=== PATIENT | female | born 1970 | race Caucasian/White ===

== ENCOUNTER 2016-06-05 08:08 | Day surgery (SDC) | payer BC ==
[2016-06-05 08:42] VITALS: RESP 20; TEMP 97.6
[2016-06-05 08:45] LABS: Mean Platelet Volume 7.6
[2016-06-05 08:55] LABS: INR 1.1 (<1.1); Prothrombin Time 10.8 sec (9.0-12.0)
[2016-06-05 09:34] VITALS: PULSE 68
[2016-06-05 09:54] VITALS: BP 100/58
--- NOTE | 2016-06-05 09:58 | XR ---
EXAMINATION TYPE: XR chest 1V DATE OF EXAM: 06/05/2016 9:52 AM COMPARISON: Chest x-ray March 08, 2016. CT cap April 18, 2016. HISTORY: Pleural effusion status post left-sided thoracentesis. TECHNIQUE: Single frontal view of the chest is obtained. FINDINGS: There is persistent small to moderate size left pleural effusion improved after left-sided thoracentesis. There is associated left basilar atelectasis and/or infiltrate. No sizable pneumothor ax is seen. There is stable right internal jugular Mediport catheter. Right lung is clear. The cardiac silhouett e size is within normal limits. Slight underlying scoliotic curvature to spine is redemonstrated. Doyle rgical clips overlie the right breast. IMPRESSION: No evidence of sizable pneumothorax after left-sided thoracentesis. Interval improvement in pleural effusion noted.
--- NOTE | 2016-06-05 13:22 | US ---
EXAMINATION TYPE: US thoracentesis DATE OF EXAM: 06/05/2016 10:48 AM COMPARISON: NONE HISTORY: Pleural effusion. FINDINGS: Maximal barrier technique was utilized. The skin overlying a suitable pocket of fluid was localized and the overlying skin prepped and draped. Lidocaine was used for local anesthesia. Ultras ound was used with sterile technique. A 5 Yoruba catheter over guide needle was advanced into the pl eural fluid collection using ultrasound guidance and catheter advanced and needle removed. Approxima tely 0.5 liter(s) of sanguinous fluid was removed. Catheter was withdrawn and hemostasis achieved. There is no immediate complication. The patient discharged in stable condition without complication. IMPRESSION: STATUS POST ULTRASOUND GUIDED THORACENTESIS, POST PROCEDURE CHEST X-RAY PENDING. THIS [place] OCEDURE WAS PERFORMED BY THE UNDERSIGNED.
== END 2016-06-05 10:10 | disposition home or self-care (01) ==
LOC: RADPROMAIN 08:08
PROVIDERS: ATTEND Internal Medicine Hematology & Oncology
DX: J90 Pleural effusion, not elsewhere classified (principal)
CPT/HCPCS: 32555; 36415; 71010; 85049; 85610

== ENCOUNTER 2016-07-21 12:48 | Day surgery (SDC) | payer BC ==
[2016-07-21 13:05] VITALS: RESP 18; TEMP 97.8
[2016-07-21 13:30] LABS: Mean Platelet Volume 7.2
[2016-07-21 13:36] LABS: INR 1.1 (<1.1); Prothrombin Time 10.9 sec (9.0-12.0)
--- NOTE | 2016-07-21 14:49 | US ---
EXAMINATION TYPE: US thoracentesis DATE OF EXAM: 07/21/2016 2:42 PM COMPARISON: NONE HISTORY: Pleural effusion. FINDINGS: Maximal barrier technique was utilized. The skin overlying a suitable pocket of fluid was localized and the overlying skin prepped and draped. Lidocaine was used for local anesthesia. Ultras ound was used with sterile technique. A 5 Bengali catheter over guide needle was advanced into the pl eural fluid collection using ultrasound guidance and a catheter advanced, needle removed. Approximat greg 0.35 liter(s) of serous fluid was removed. Catheter was withdrawn and hemostasis achieved. Ther e is no immediate complication. The patient discharged in stable condition without complication. IMPRESSION: STATUS POST ULTRASOUND GUIDED THORACENTESIS, POST PROCEDURE CHEST X-RAY PENDING. THIS [place] OCEDURE WAS PERFORMED BY THE UNDERSIGNED.
--- NOTE | 2016-07-21 14:51 | XR ---
EXAMINATION TYPE: XR chest 1V portable DATE OF EXAM: 07/21/2016 2:45 PM COMPARISON: Prior chest x-ray 05 June 2016 HISTORY: Pleural effusion TECHNIQUE: Single frontal view of the chest is obtained. FINDINGS: Basilar density on the left persists. No evident pneumothorax. There is a spinal curvature . Surgical clips present in the right axilla and right upper quadrant. Right-sided central venous cat heter, Port-A-Cath present, tip over the superior vena cava. IMPRESSION: No evident complication status post thoracentesis.
[2016-07-21 15:15] VITALS: BP 117/72; PULSE 87
== END 2016-07-21 15:10 | disposition home or self-care (01) ==
LOC: RADPROMAIN 12:48
PROVIDERS: ATTEND Internal Medicine Hematology & Oncology
DX: J90 Pleural effusion, not elsewhere classified (principal)
CPT/HCPCS: 32555; 71010; 85049; 85610

== ENCOUNTER → 2016-09-29 | Outpatient (CLI) | payer BC ==
--- NOTE | 2016-09-29 11:49 | XR ---
EXAMINATION TYPE: XR chest 2V DATE OF EXAM: 09/29/2016 11:22 AM HISTORY: J90 pleural effusion. REFERENCE: Previous study dated 07/21/2016. FINDINGS: There is a MediPort in place on the right, unchanged from previous. There is a worsening left effusion and associated atelectatic change. The right lung is clear. Heart size is obscured. IMPRESSION: ENLARGING LEFT-SIDED PLEURAL EFFUSION.
== END ==
LOC: RADXRMAIN 11:08
PROVIDERS: ATTEND Surgery
DX: J90 Pleural effusion, not elsewhere classified (principal)
CPT/HCPCS: 71020

== ENCOUNTER 2016-10-04 08:30 | Day surgery (SDC) | payer BC ==
[2016-10-04 09:03] VITALS: TEMP 97.7
[2016-10-04 09:11] LABS: Mean Platelet Volume 7.2
[2016-10-04 09:15] LABS: INR 1.1 (<1.1); Prothrombin Time 10.6 sec (9.0-12.0)
--- NOTE | 2016-10-04 10:52 | XR ---
EXAMINATION TYPE: XR chest 1V DATE OF EXAM: 10/04/2016 10:47 AM COMPARISON: Prior chest x-ray 29 Sep 2016 HISTORY: Status post left thoracentesis TECHNIQUE: Single frontal view of the chest is obtained. FINDINGS: Some improvement in aeration. No evident pneumothorax. No other significant interval sánchez e. IMPRESSION: No evident complication status post thoracentesis.
[2016-10-04 11:11] VITALS: BP 106/63; PULSE 77; RESP 14
--- NOTE | 2016-10-04 14:19 | US ---
EXAMINATION TYPE: US thoracentesis DATE OF EXAM: 10/04/2016 10:39 AM COMPARISON: NONE HISTORY: Pleural effusion. FINDINGS: Maximal barrier technique was utilized. The skin overlying a suitable pocket of fluid was localized and the overlying skin prepped and draped. Lidocaine was used for local anesthesia. Ultras ound was used with sterile technique. A 5 Icelandic catheter over guide needle was advanced into the pl eural fluid collection using ultrasound guidance and catheter advanced, needle removed. Approximatel y 0.58 liter(s) of dark sanguinous fluid was removed. Catheter was withdrawn and hemostasis achieved . There is no immediate complication. The patient discharged in stable condition without complicati on. IMPRESSION: STATUS POST ULTRASOUND GUIDED THORACENTESIS, POST PROCEDURE CHEST X-RAY PENDING. THIS [place] OCEDURE WAS PERFORMED BY THE UNDERSIGNED.
== END 2016-10-04 11:35 | disposition home or self-care (01) ==
LOC: RADPROMAIN 08:30
PROVIDERS: ATTEND Internal Medicine Hematology & Oncology
DX: J90 Pleural effusion, not elsewhere classified (principal); C78.02 Secondary malignant neoplasm of left lung
CPT/HCPCS: 32555; 71010; 85049; 85610; 88108; 88305; 88341; 88342

== ENCOUNTER → 2017-01-23 | Outpatient (CLI) | payer BC ==
--- NOTE | 2017-01-23 09:18 | CT ---
EXAMINATION TYPE: CT ChestAbdPelvis w con DATE OF EXAM: 01/23/2017 COMPARISON: 04/18/2016 HISTORY: Breast Cancer, Ovarian Cancer CT DLP: 540.40 mGycm. Automated Exposure Control for Dose Reduction was Utilized. CONTRAST: CT scan of the thorax, abdomen and pelvis is performed with IV Contrast, patient injected with 100 ml mL of Omnipaque 300. FINDINGS: LUNGS: No focal consolidation, pleural effusion or pneumothorax. Stable 3 mm subpleural pulmonary nodule in the superior segment of the right lower lobe posteriorly a s seen on series 4 image 26. Within the right upper lobe on image 28 there is a stable 6 mm pulmonary nodule which is subsequently. Retrospectively there is a stable subpleural pulmonary nodule measurin g 4 mm on image 32. Stability of the pleural based pulmonary nodules along the right lower lobe on im ages 46 and 47 are also redemonstrated. Stable 3 to 4 mm pulmonary nodules in the left upper lobe are present on image 25. Lingular pulmonary nodule was not present on the prior exam due to surrounding atelectasis measuring 3.6 mm on image 37. There is a small hydropneumothorax, iatrogenic secondary to a pleural catheter inserted within a smal l to moderate left pleural effusion terminating near the anterior left cardiophrenic angle. Associate d subsegmental compressive atelectasis is noted. This enhances greater than the paraspinal musculatur e compatible with atelectasis. Split pleura sign is noted within the left effusion although fluid hillary ears low-density. Degree of fluid has decreased from the prior exam. MEDIASTINUM: There are no greater than 1 cm hilar or mediastinal lymph nodes. No pericardial effusi on is seen. OTHER: Bilateral breast implants are seen as well as right-sided Mediport and surgical clips. No susp icious osseous lesions are seen. LIVER/GB: No significant abnormality is appreciated. Cholecystectomy is noted. Scant amount of perihe patic fluid is seen. PANCREAS: No significant abnormality is seen. No ductal dilatation. SPLEEN: No significant abnormality is seen. Nonenlarged. ADRENALS: No significant abnormality is seen. Maintain adreniform morphology. KIDNEYS: Enhance symmetrically without discrete lesion BOWEL: Focal bowel wall thickening within the hepatic flexure and transverse colon may be reactive re lated to the adjacent minimal ascites. Bowel wall thickening measures up to 8 mm. No bowel dilation. GENITAL ORGANS: Uterus is surgically absent. Ovaries are not identified. LYMPH NODES: No greater than 1cm abdominal or pelvic lymph nodes are appreciated. OSSEOUS STRUCTURES: No significant abnormality is seen. Slight S-shaped curvature of the thoracolumba r spine and mild degenerative changes. No suspicious osseous lesion. OTHER: Trace amount of fluid is seen within the pelvis, low density. IMPRESSION: 1. No evidence of visceral or osseous metastasis within the abdomen or pelvis. 2. No adenopathy within the chest, abdomen, or pelvis. 3. Multiple stable subcentimeter pulmonary nodules. 4. Focal bowel wall thickening of the hepatic flexure that may be reactive, related to trace adjacent ascites. Minimal amount of cul-de-sac free fluid, simple in nature. 5. Decrease in degree of left pleural effusion with thoracostomy tube present. Associated subsegmenta l left basilar atelectasis is again seen.
== END | disposition home or self-care (01) ==
LOC: RADCTMAIN 07:44
PROVIDERS: ATTEND Internal Medicine Hematology & Oncology
DX: C50.411 Malignant neoplasm of upper-outer quadrant of right female breast (principal); C56.9 Malignant neoplasm of unspecified ovary; R91.8 Other nonspecific abnormal finding of lung field; J90 Pleural effusion, not elsewhere classified; J98.11 Atelectasis; K76.89 Other specified diseases of liver
CPT/HCPCS: 71260; 74177; Q9967; J1642

== ENCOUNTER 2017-03-15 04:20 | Inpatient (IN) | payer BC ==
[2017-03-15] MEDS ORDERED: ONDANSETRON 4 MG/2 ML VIAL IVP STA ×2 (04:46→06:49)
[2017-03-15] MEDS ORDERED: SODIUM CHLORIDE 0.9% 500 ML IV STA (04:46)
[2017-03-15 05:34] LABS: Anisocytosis Slight; Basophils % (A) 0 %; CH 36.5; CHCM 34.6; Eosinophils % (A) 1 %; HCT 33.6 % (34.0-46.0); HDW 3.14; HGB 11.3 gm/dL (11.4-16.0); Luc # (Auto) 0.08; Luc % (Auto) 2; Lymphocytes # (A) 0.5 k/uL (1.0-4.8); Lymphocytes % (A) 13 %; MCH 35.7 pg (25.0-35.0); MCHC 33.6 g/dL (31.0-37.0); MCV 106.2 fL (80.0-100.0); Macrocytosis Moderate; Mean Platelet Volume 8.2; Monocytes # (A) 0.3 k/uL (0-1.0); Monocytes % (A) 9 %; Neutrophils # (A) 2.8 k/uL (1.3-7.7); Neutrophils % (A) 75 %; RBC 3.17 m/uL (3.80-5.40); RDW 17.1 % (11.5-15.5); WBC 3.8 k/uL (3.8-10.6); WBC (Perox) 4.09
[2017-03-15 05:47] LABS: ALT 35 U/L (9-52); AST 20 U/L (14-36); Alkaline Phosphatase 98 U/L (38-126); Amylase <30 U/L (30-110); Anion Gap 10 mmol/L; Blood Urea Nitrogen 24 mg/dL (7-17); Calcium 9.2 mg/dL (8.4-10.2); Carbon Dioxide 28 mmol/L (22-30); Chloride 96 mmol/L (98-107); Glucose 116 mg/dL (74-99); Non-African American GFR(MDRD) >60 (>60 ml/min/1.73 sqM); Sodium 134 mmol/L (137-145); Total Protein 6.5 g/dL (6.3-8.2)
--- NOTE | 2017-03-15 06:03 | XR ---
EXAM: XR Abdomen Complete With XR Chest CLINICAL HISTORY: Left-sided abdominal pain with vomiting. TECHNIQUE: Frontal view of the chest, frontal view of the abdomen/pelvis and upright view of the abdomen. COMPARISON: 10/04/2016. FINDINGS: Lungs: Moderate left pleural effusion resulting in compressive atelectasis of the left lung base, slight interval improvement since prior study. Pleural space: See above. Heart: Unremarkable. No cardiomegaly. Mediastinum: Unremarkable. Intraperitoneal space: No free air. Gastrointestinal tract: Distended air-fluid filled small bowel loops are noted, measuring up to 4.3 cm in diameter, consistent with small bowel obstruction. Organs: Status post cholecystectomy. Bones/joints: Unremarkable. Vasculature: Right-sided chemotherapy port with tip overlying the SVC. Tubes, lines and devices: Left-sided chest tube is seen. IMPRESSION: Distended air-fluid filled small bowel loops are noted, measuring up to 4.3 cm in diameter, consistent with small bowel obstruction. CT of the abdomen/pelvis with oral and IV contrast recommended for further evaluation.
[2017-03-15 06:16] LABS: Appearance,Urine Clear (Clear); Bilirubin,Urine 1+ (Negative); Glucose,Urine (UA) Negative (Negative); Ketones,Urine 2+ (Negative); Leukocyte Esterase,Urine Negative (Negative); Mucus,Urine Moderate /hpf; Nitrite,Urine Negative (Negative); Particle Count 13079; Protein,Urine 1+ (Negative); RBC,Urine 2 /hpf (0-5); Specific Gravity,Urine 1.029 (1.001-1.035); Squamous Epithelial Cell,Urine <1 /hpf (0-4); UA Billing (MACRO vs. MICRO) MICRO; WBC,Urine 3 /hpf (0-5)
[2017-03-15] MEDS ORDERED: MORPHINE SULFATE 10 MG/ML SYRINGE IV PRN (06:49)
[2017-03-15] MEDS ORDERED: NALOXONE 0.4 MG/ML 1 ML VIAL IV PRN (06:49)
[2017-03-15] MEDS ORDERED: SUMAtriptan SUCCINATE 50 MG TAB PO PRN (06:53)
[2017-03-15] MEDS ORDERED: SODIUM CHLORIDE 0.9% 1,000 ML IV SCH (07:00)
--- NOTE | 2017-03-15 07:15 | ED ---
Abdominal Pain HPI - General Chief Complaint: Abdominal Pain Stated Complaint: vomiting,abd pain,cancer pt Time Seen by Provider: 03/15/17 04:28 Source: patient Mode of arrival: ambulatory Limitations: no limitations - History of Present Illness Initial Comments: This patient is a 46-year-old woman with history of ovarian cancer and multiple previous abdominal surgeries, who presents with abdominal pain, nausea and vomiting. The patient states that 2-3 days ago she started having some mild upper abdominal pain and she was nauseated. The patient states that at the start of felt like she had a "knot in her stomach"and she indicated the epigastric area. She states that over the past 2 days she has had "countless," episodes of vomiting. She states that basically anytime she tries to take anything to drink, that shortly after she will have vomiting. The patient also notes that she has not had a bowel movement for the past couple of days and over the past day does not remember passing much in way of gas. She states that she is concerned about possibility of being obstructed. MD Complaint: abdominal pain -: days(s) Location: diffuse Radiation: none Severity: moderate Quality: cramping, fullness Consistency: intermittent Improves With: vomiting Worsens With: eating Associated Symptoms: nausea, vomiting - Related Data Home Medications Medication Instructions Recorded Confirmed LORazepam [Ativan] 2 mg PO HS 09/08/15 03/15/17 SUMAtriptan SUCCINATE [Imitrex] 100 mg PO DAILY PRN 09/08/15 03/15/17 Prochlorperazine [Compazine] 10 mg PO Q6H PRN 01/26/16 03/15/17 ALPRAZolam [Xanax] 0.5 mg PO Q6H PRN 10/04/16 03/15/17 Rucaparib Camsylate [Rubraca] 300 mg PO QAM 10/04/16 03/15/17 Rucaparib Camsylate [Rubraca] 600 mg PO HS 03/15/17 03/15/17 Previous Rx's Medication Instructions Recorded Benzocaine Elkins [Hurricaine Elkins] 1 spray MUCOUS MEM QID PRN can 03/21/17 Enoxaparin [Lovenox] 40 mg SQ DAILY syringe 03/21/17 Ondansetron [Zofran] 4 mg IVP Q6HR PRN vial 03/21/17 Allergies Allergy/AdvReac Type Severity Reaction Status Date / Time No Known Allergies Allergy Verified 03/15/17 07:00 Review of Systems ROS Statement: Those systems with pertinent positive or pertinent negative responses have been documented in the HPI. ROS Other: All systems not noted in ROS Statement are negative. Constitutional: Reports: weakness. Denies: fever, chills Respiratory: Denies: cough, dyspnea Cardiovascular: Denies: chest pain, palpitations, edema Gastrointestinal: Reports: abdominal pain, nausea, vomiting, constipation. Denies: diarrhea, melena, hematochezia Genitourinary: Denies: dysuria, hematuria Musculoskeletal: Denies: back pain Skin: Denies: rash Neurological: Denies: headache, weakness, numbness Past Medical History Past Medical History: Cancer Additional Past Medical History / Comment(s): Breast, Ovarian dx , MIGRAINE HEADACHE, pleural effusions, CA125 markers holding steady. History of Any Multi-Drug Resistant Organisms: None Reported Past Surgical History: Breast Surgery, Cholecystectomy, Hysterectomy Additional Past Surgical History / Comment(s): Total Hyst with debulking . PORT AND PORT REMOVAL , RIGHT PARTIAL MASTECTOMY WITH BILATERAL RECONSTRUCTION WITH IMPLANTS, THORACENTESIS, Past Anesthesia/Blood Transfusion Reactions: No Reported Reaction Past Psychological History: Anxiety Smoking Status: Former smoker Past Alcohol Use History: Occasional Past Drug Use History: Marijuana - Past Family History Mother Family Medical History: Cancer Additional Family Medical History / Comment(s): lung ca Father Family Medical History: Diabetes Mellitus General Exam Limitations: no limitations General appearance: alert, in no apparent distress Head exam: Present: atraumatic, normocephalic Eye exam: Present: normal appearance. Absent: scleral icterus, conjunctival injection ENT exam: Present: mucous membranes dry Respiratory exam: Present: normal lung sounds bilaterally, other (Patient has left-sided thoracostomy tube which has a normal appearance.). Absent: respiratory distress, wheezes, rales, rhonchi, stridor Cardiovascular Exam: Present: regular rate, normal rhythm, normal heart sounds. Absent: systolic murmur, diastolic murmur, rubs, gallop GI/Abdominal exam: Present: soft, tenderness (There is mild generalized tenderness without rebound or guarding), diminished bowel sounds. Absent: distended, guarding, rebound, rigid, mass, pulsatile mass, hernia Extremities exam: Present: normal inspection, normal capillary refill. Absent: pedal edema, calf tenderness Back exam: Present: normal inspection. Absent: CVA tenderness (R), CVA tenderness (L) Skin exam: Present: warm, dry, intact, normal color. Absent: rash Course Vital Signs 03/15/17 03/15/17 03/15/17 04:28 05:20 06:23 Temperature 97.8 F Pulse Rate 113 H 97 89 Respiratory 18 18 18 Rate Blood Pressure 131/77 118/67 120/76 O2 Sat by Pulse 96 97 96 Oximetry 03/15/17 03/15/17 07:02 07:06 Temperature 98.7 F Pulse Rate 89 Respiratory 18 Rate Blood Pressure 92/54 O2 Sat by Pulse 97 Oximetry Medical Decision Making - Lab Data Result diagrams: 03/17/17 07:20 03/21/17 05:20 Lab Results 03/15/17 03/15/17 03/15/17 Range/Units 05:18 05:18 05:18 WBC 3.8 (3.8-10.6) k/uL RBC 3.17 L (3.80-5.40) m/uL Hgb 11.3 L (11.4-16.0) gm/dL Hct 33.6 L (34.0-46.0) % MCV 106.2 H (80.0-100.0) fL MCH 35.7 H (25.0-35.0) pg MCHC 33.6 (31.0-37.0) g/dL RDW 17.1 H (11.5-15.5) % Plt Count 270 (150-450) k/uL Neutrophils % 75 % Lymphocytes % 13 % Monocytes % 9 % Eosinophils % 1 % Basophils % 0 % Neutrophils # 2.8 (1.3-7.7) k/uL Lymphocytes # 0.5 L (1.0-4.8) k/uL Monocytes # 0.3 (0-1.0) k/uL Eosinophils # 0.0 (0-0.7) k/uL Basophils # 0.0 (0-0.2) k/uL Anisocytosis Slight Macrocytosis Moderate Sodium 134 L (137-145) mmol/L Potassium 4.0 (3.5-5.1) mmol/L Chloride 96 L (98-107) mmol/L Carbon Dioxide 28 (22-30) mmol/L Anion Gap 10 mmol/L BUN 24 H (7-17) mg/dL Creatinine 0.80 (0.52-1.04) mg/dL Est GFR (MDRD) Af Amer >60 (>60 ml/min/1.73 sqM) Est GFR (MDRD) Non-Af >60 (>60 ml/min/1.73 sqM) Glucose 116 H (74-99) mg/dL Calcium 9.2 (8.4-10.2) mg/dL Total Bilirubin 1.0 (0.2-1.3) mg/dL AST 20 (14-36) U/L ALT 35 (9-52) U/L Alkaline Phosphatase 98 (38-126) U/L Total Protein 6.5 (6.3-8.2) g/dL Albumin 3.7 (3.5-5.0) g/dL Prealbumin 14.0 L (18.0-42.0) mg/dL Amylase <30 L (30-110) U/L Lipase 61 (23-300) U/L Urine Color Urine Appearance (Clear) Urine pH (5.0-8.0) Ur Specific [place] (1.001-1.035) Urine Protein (Negative) Urine Glucose (UA) (Negative) Urine Ketones (Negative) Urine Blood (Negative) Urine Nitrite (Negative) Urine Bilirubin (Negative) Urine Urobilinogen (<2.0) mg/dL Ur Leukocyte Esterase (Negative) Urine RBC (0-5) /hpf Urine WBC (0-5) /hpf Ur Squamous Epith Cells (0-4) /hpf Hyaline Casts (0-2) /lpf Urine Mucus (None) /hpf 03/15/17 Range/Units 05:55 WBC (3.8-10.6) k/uL RBC (3.80-5.40) m/uL Hgb (11.4-16.0) gm/dL Hct (34.0-46.0) % MCV (80.0-100.0) fL MCH (25.0-35.0) pg MCHC (31.0-37.0) g/dL RDW (11.5-15.5) % Plt Count (150-450) k/uL Neutrophils % % Lymphocytes % % Monocytes % % Eosinophils % % Basophils % % Neutrophils # (1.3-7.7) k/uL Lymphocytes # (1.0-4.8) k/uL Monocytes # (0-1.0) k/uL Eosinophils # (0-0.7) k/uL Basophils # (0-0.2) k/uL Anisocytosis Macrocytosis Sodium (137-145) mmol/L Potassium (3.5-5.1) mmol/L Chloride (98-107) mmol/L Carbon Dioxide (22-30) mmol/L Anion Gap mmol/L BUN (7-17) mg/dL Creatinine (0.52-1.04) mg/dL Est GFR (MDRD) Af Amer (>60 ml/min/1.73 sqM) Est GFR (MDRD) Non-Af (>60 ml/min/1.73 sqM) Glucose (74-99) mg/dL Calcium (8.4-10.2) mg/dL Total Bilirubin (0.2-1.3) mg/dL AST (14-36) U/L ALT (9-52) U/L Alkaline Phosphatase (38-126) U/L Total Protein (6.3-8.2) g/dL Albumin (3.5-5.0) g/dL Prealbumin (18.0-42.0) mg/dL Amylase (30-110) U/L Lipase (23-300) U/L Urine Color Yellow Urine Appearance Clear (Clear) Urine pH 6.0 (5.0-8.0) Ur Specific [place]wood 1.029 (1.001-1.035) Urine Protein 1+ H (Negative) Urine Glucose (UA) Negative (Negative) Urine Ketones 2+ H (Negative) Urine Blood Negative (Negative) Urine Nitrite Negative (Negative) Urine Bilirubin 1+ H (Negative) Urine Urobilinogen 4.0 (<2.0) mg/dL Ur Leukocyte Esterase Negative (Negative) Urine RBC 2 (0-5) /hpf Urine WBC 3 (0-5) /hpf Ur Squamous Epith Cells <1 (0-4) /hpf Hyaline Casts 1 (0-2) /lpf Urine Mucus Moderate H (None) /hpf Disposition Clinical Impression: Bowel obstruction, Ovarian cancer Disposition: ADMITTED IP TO THIS [facility] Condition: Poor
[2017-03-15] MEDS: FAMOTIDINE 20 MG/2 ML VIAL IV SCH ×2 (10:15→20:26)
[2017-03-15] MEDS: ONDANSETRON 4 MG/2 ML VIAL IVP PRN ×2 (12:38→19:39)
[2017-03-15] MEDS: PROCHLORPERAZINE 10 MG TAB PO SCH ×2 (13:20→20:18)
[2017-03-15] MEDS: RUCAPARIB CAMSYLATE 300 MG PO SCH ×3 (13:20→22:23)
--- NOTE | 2017-03-15 15:04 | HP ---
HISTORY AND PHYSICAL DATE OF ADMISSION: 03/15/2017 PRESENTING COMPLAINT: Abdominal pain. HISTORY OF PRESENTING COMPLAINT: A very pleasant, 46-year-old patient of Dr. Hunt. Patient back in 2004 had right breast cancer treated with chemotherapy, radiation, mastectomy. Patient then diagnosed with ovarian cancer in 2014 with what appears to be have intraabdominal metastasis including left pleural effusion. For which patient has got a drain for which she goes to [facility], Dr. Russell to get it intermittently drained. Patient appetite has gone down and losing weight. Patient alternates between diarrhea and constipation. Two days having increasing abdominal pain and started having nausea, vomiting,. not able to keep anything down. Patient had a small bowel movement today. Patient's and in-laws are in the room. REVIEW OF SYSTEMS: CONSTITUTIONAL: Weight loss, loss of appetite, weak, tired. HEENT: None. RESPIRATORY: Very slight shortness of breath. CARDIOVASCULAR: None. GASTROINTESTINAL: As above. GENITOURINARY: None. MUSCULOSKELETAL: None. DERMATOLOGIC: None. HEMATOLOGIC: None. LYMPHATIC: None. PSYCHIATRY: slightly anxious. NEUROLOGICAL: None. PAST MEDICAL HISTORY: Right breast cancer treated with mastectomy, chemoradiation back in 2004, now ovarian cancer spread intra-abdominally including the liver, treated with surgery and chemo, currently on oral chemotherapy, also with pleural effusion and patient is hypothyroid. PAST SURGICAL HISTORY: Breast right mastectomy, cholecystectomy, hysterectomy, port on the right chest wall, right partial mastectomy with bilateral reconstruction with implants. SOCIAL HISTORY: Patient lives with her . Some anxiety, depression. Sometimes uses a walker when she goes outside. The patient smoked for 18 years. Stopped in 2004. Alcohol occasionally. Has done medical marijuana in the past. FAMILY HISTORY: Mother had lung cancer, was a smoker. HOME MEDICATIONS: 1. Imitrex 100 mg daily p.r.n. 2. Rubraca 600 mg p.o. q.h.s., 300 mg in the morning. 3. Compazine 10 mg q.6 p.r.n. 4. Zofran 4 mg q.4 p.r.n. 5. Ativan 2 mg p.o. q.h.s. 6. Xanax 0.5 p.o. q.6 p.r.n. ALLERGIES: None. PHYSICAL EXAMINATION: Temperature 97.8, pulse: 113, respiration 18, blood pressure 131/77, pulse ox 96% on room air. GENERAL APPEARANCE: Thin build. Sitting up. Tired-appearing. EYES: Pupils equal, conjunctivae are pale. HEENT: Oral cavity dry mucous membrane. NECK: JVD not raised. Mass not palpable. RESPIRATORY: Effort normal. LUNGS: Slightly decreased breath sounds. CARDIOVASCULAR: First and second sounds normal, no edema. ABDOMEN: Diffuse tenderness, more so centrally but no guarding or rigidity. Soft, liver and spleen not palpable. LYMPHATIC: No lymph node palpable in neck or axillae. PSYCHIATRY: Alert and oriented x3. Mood and affect slightly anxious-appearing. NEUROLOGICAL: Pupils are grossly intact. Power and sensation grossly intact. Very slight edema is present. INVESTIGATIONS: White count 3.8, hemoglobin 11.3, platelets 270, potassium 4, BUN 24, creatinine 0.80. Acute abdominal series, distended air-filled small bowel loops are noted measuring up to 4.3 cm. ASSESSMENT: 1. Acute small-bowel obstruction in a patient who has got intraabdominal metastatic disease from ovarian cancer and having nausea, vomiting with a small amount of bowel movement today. 2. Metastatic ovarian cancer on chemotherapy. 3. Chronic left pleural effusion from malignancy with a drain in place. 4. Hypothyroidism. 5. Macrocytic anemia likely from underlying malignancy. PLAN: Consultation to Dr. Thao from Oncology; Dr. Hicks from General Surgery is being made. Patient is currently n.p.o. getting IV fluids. Overall prognosis is guarded. Care was discussed with the patient and family at the bedside. MMODL / IJN: [id number] /
[2017-03-15] MEDS ORDERED: RX INFO: IV CONTRAST WAS GIVEN 1 EACH MISC MISCELLANE PRN (16:04)
[2017-03-15] MEDS ORDERED: IOHEXOL 350 MG/ML 25 ML BOTTLE (ORAL USE) PO PRN (16:04)
--- NOTE | 2017-03-15 16:10 | P.GSCN ---
History of Present Illness Consult date: 03/15/17 Reason for Consult: Small bowel obstruction History of present illness: Patient with a history of ovarian cancer that is metastatic. Her most recent CAT scan was performed in late December. Some thickening of the hepatic flexure of the colon was noted at that time. She saw her gynecologic oncologist Dr. Red following that. On his examination there was some soft tissue in the cul -de-sac that he thought likely represented persistent disease. No recent PET scan. She is currently undergoing a oral chemotherapy agents. She has over the last several months had intermittent diarrhea and constipation. Over the last 2-3 days she has had nausea and persistent vomiting. Some upper abdominal spastic pain. Denies rectal bleeding. No fevers. She was feeling quite dehydrated and came to the hospital yesterday for evaluation. Abdominal x-rays suggested a small bowel obstruction. She is afebrile. White blood cell count is normal. No prior bowel obstructions. Review of Systems The patient denies any acute changes in vision or hearing, no dysphagia or odynophagia, no chest pain or shortness of breath, no dysuria or hematuria, no headache, no runny nose, no rectal bleeding or melena Past Medical History Past Medical History: Cancer Additional Past Medical History / Comment(s): R Breast-treated with partial R mastectomy/chemo/radiation, Ovarian cancer which pt states spread thru "my entire belly-including my liver"-tx with surgery and chemo-currently on oral chemo, MIGRAINE HEADACHE, pleural effusions-currently has L lung drainage tube, hypothyroid. History of Any Multi-Drug Resistant Organisms: None Reported Past Surgical History: Breast Surgery, Cholecystectomy, Hysterectomy Additional Past Surgical History / Comment(s): Total Hyst with debulking . PORTS WITH LAST ONE PLACED IN 2014, RIGHT PARTIAL MASTECTOMY WITH BILATERAL RECONSTRUCTION WITH IMPLANTS, THORACENTESIS/DRAIN LEFT IN L LUNG, 2013 COLONOSCOPY Past Anesthesia/Blood Transfusion Reactions: No Reported Reaction Smoking Status: Former smoker - Past Family History Mother Family Medical History: Cancer Additional Family Medical History / Comment(s): Lung ca-mother was a smoker. Father Family Medical History: Diabetes Mellitus Medications and Allergies Home Medications Medication Instructions Recorded Confirmed Type LORazepam [Ativan] 2 mg PO HS 09/08/15 03/15/17 History SUMAtriptan SUCCINATE [Imitrex] 100 mg PO DAILY PRN 09/08/15 03/15/17 History Prochlorperazine [Compazine] 10 mg PO Q6H PRN 01/26/16 03/15/17 History ALPRAZolam [Xanax] 0.5 mg PO Q6H PRN 10/04/16 03/15/17 History Rucaparib Camsylate [Rubraca] 300 mg PO QAM 10/04/16 03/15/17 History Ondansetron [Zofran ODT] 4 mg PO Q4H PRN 03/15/17 03/15/17 History Rucaparib Camsylate [Rubraca] 600 mg PO HS 03/15/17 03/15/17 History Allergies Allergy/AdvReac Type Severity Reaction Status Date / Time No Known Allergies Allergy Verified 03/15/17 07:00 Surgical - Exam Vital Signs Temp Pulse Resp BP Pulse Ox 97.8 F 113 H 18 131/77 96 03/15/17 04:28 03/15/17 04:28 03/15/17 04:28 03/15/17 04:28 03/15/17 04:28 Physical exam: General: Thin somewhat malnourished appearing HEENT: Normocephalic, sclerae nonicteric Abdomen: Mild diffuse tenderness increased in the right midabdomen, nondistended Extremities: No edema Neuro: Alert and oriented Results - Labs 03/15/17 05:18 03/15/17 05:18 Abnormal Lab Results - Last 24 Hours (Table) 03/15/17 03/15/17 03/15/17 Range/Units 05:18 05:18 05:55 RBC 3.17 L (3.80-5.40) m/uL Hgb 11.3 L (11.4-16.0) gm/dL Hct 33.6 L (34.0-46.0) % MCV 106.2 H (80.0-100.0) fL MCH 35.7 H (25.0-35.0) pg RDW 17.1 H (11.5-15.5) % Lymphocytes # 0.5 L (1.0-4.8) k/uL Sodium 134 L (137-145) mmol/L Chloride 96 L (98-107) mmol/L BUN 24 H (7-17) mg/dL Glucose 116 H (74-99) mg/dL Amylase <30 L (30-110) U/L Urine Protein 1+ H (Negative) Urine Ketones 2+ H (Negative) Urine Bilirubin 1+ H (Negative) Urine Mucus Moderate H (None) /hpf Diabetes panel 03/15/17 Range/Units 05:18 Sodium 134 L (137-145) mmol/L Potassium 4.0 (3.5-5.1) mmol/L Chloride 96 L (98-107) mmol/L Carbon Dioxide 28 (22-30) mmol/L BUN 24 H (7-17) mg/dL Creatinine 0.80 (0.52-1.04) mg/dL Glucose 116 H (74-99) mg/dL Calcium 9.2 (8.4-10.2) mg/dL AST 20 (14-36) U/L ALT 35 (9-52) U/L Alkaline Phosphatase 98 (38-126) U/L Total Protein 6.5 (6.3-8.2) g/dL Albumin 3.7 (3.5-5.0) g/dL Calcium panel 03/15/17 Range/Units 05:18 Calcium 9.2 (8.4-10.2) mg/dL Albumin 3.7 (3.5-5.0) g/dL Pituitary panel 03/15/17 Range/Units 05:18 Sodium 134 L (137-145) mmol/L Potassium 4.0 (3.5-5.1) mmol/L Chloride 96 L (98-107) mmol/L Carbon Dioxide 28 (22-30) mmol/L BUN 24 H (7-17) mg/dL Creatinine 0.80 (0.52-1.04) mg/dL Glucose 116 H (74-99) mg/dL Calcium 9.2 (8.4-10.2) mg/dL Adrenal panel 03/15/17 Range/Units 05:18 Sodium 134 L (137-145) mmol/L Potassium 4.0 (3.5-5.1) mmol/L Chloride 96 L (98-107) mmol/L Carbon Dioxide 28 (22-30) mmol/L BUN 24 H (7-17) mg/dL Creatinine 0.80 (0.52-1.04) mg/dL Glucose 116 H (74-99) mg/dL Calcium 9.2 (8.4-10.2) mg/dL Total Bilirubin 1.0 (0.2-1.3) mg/dL AST 20 (14-36) U/L ALT 35 (9-52) U/L Alkaline Phosphatase 98 (38-126) U/L Total Protein 6.5 (6.3-8.2) g/dL Albumin 3.7 (3.5-5.0) g/dL Assessment and Plan (1) Bowel obstruction Narrative/Plan: Clinical scenario discussed with the patient. Small bowel structure likely on the basis of recurrent peritoneal disease. Will check CT abdomen and pelvis at this time. Keep nothing by mouth for now. We'll check prealbumin level. Patient may require parenteral nutrition. Current Visit: Yes Status: Acute Code(s): K56.609 - SNOMED Code(s): 18034792
[2017-03-15] MEDS: LACTATED RINGERS 1,000 ML IV SCH (17:47)
[2017-03-15] MEDS: ENOXAPARIN 40 MG/0.4 ML SYRINGE SQ SCH (17:47)
--- NOTE | 2017-03-15 19:23 | CT ---
EXAMINATION TYPE: CT abdomen pelvis w con DATE OF EXAM: 03/15/2017 HISTORY: Evaluate small bowel obstruction. History of ovarian cancer. Mass felt near rectum on rectal exam. CT DLP: 991.00mGycm Automated Exposure Control for Dose Reduction was Utilized. CONTRAST: CT scan of the abdomen and pelvis is performed with IV Contrast, patient injected with 100 mL of Omni paque 300. COMPARISON: None. FINDINGS: LUNG BASES: There is a left-sided thoracostomy tube within 80 partially visualized small left pleural effusion with associated left basilar subsegmental atelectasis and interfissural fluid. Split pleura sign and likely relates to reactive inflammatory process of the pleural given the chest tube placeme nt rather than empyema. Bilateral breast implants are noted. LIVER/GB: In this patient with a history of ovarian cancer there is no evidence of liver parenchymal invasion or focal hepatic masses. No intrahepatic biliary ductal dilatation. Gallbladder is surgicall y absent. No subserosal implants are identified. PANCREAS: No significant abnormality is seen. No ductal dilatation. SPLEEN: No significant abnormality is seen. No splenomegaly. ADRENALS: Adrenal glands are symmetric and maintained adreniform morphology. KIDNEYS: Enhance symmetrically without hydronephrosis. BOWEL: The majority of the small bowel is dilated containing differential air-fluid levels with the p roximal small bowel dilated up to 3.9 cm. No distinct transition point is identified, however there i s decreased caliber at the distal ileum with fluid seen in the distal ileum and terminal ileum. The c olon is nondilated with pronounced haustral markings and hyperemia, likely reactive as they are seen throughout and there is adjacent small volume low-density ascites. Distal colon is decompressed inclu ding the descending and sigmoid colon. Engorgement of the vasa recta and mesenteric haziness relate t o mesenteric congestion. Progression of contrast within the small bowel is seen to the pelvis likely within the distal jejunum. UTERUS/ADNEXA: Uterus is surgically absent and once again the ovaries are not identified and also may be surgically absent. LYMPH NODES: No greater than 1cm abdominal or pelvic lymph nodes are appreciated. OSSEOUS STRUCTURES: No significant abnormality is seen. Mild S-shaped scoliotic curvature is again se en of the thoracolumbar spine with minimal degenerative changes. IMPRESSION: 1. Diffuse dilation of the small bowel with no focal transition point, however there is decreased nieves iber of the distal ileum and terminal ileum suspicious for incomplete/partial small bowel obstruction . Short-term follow-up abdominal radiograph could be performed to assess for advancement of oral cont rast through the small bowel into the colon to ensure no early complete small bowel obstruction. 2. Interval increase degree of now small to moderate volume low-density ascites and mesenteric conges tion. 3. Diffuse colonic haustral hyperemia and prominence that may relate to inflammatory change from the adjacent ascites. 4. Partially visualized left complex pleural effusion with left basilar airspace disease and left tho racostomy tube in place. A [employer]te message has been communicated to Andrea Hicks MD~[id number] via the [employer] Critical Result system on 03/15/2017 7:21 PM, Message ID [id number].
[2017-03-15] MEDS: LORazepam 1 MG TAB PO SCH (21:54)
[2017-03-15] MEDS: RUCAPARIB CAMSYLATE PO SCH (22:23)
[2017-03-16] MEDS: LACTATED RINGERS 1,000 ML IV SCH ×3 (00:01→14:18)
[2017-03-16] MEDS: PROCHLORPERAZINE 10 MG TAB PO SCH ×4 (01:25→19:50)
[2017-03-16] MEDS ORDERED: ACETAMINOPHEN IV (For NPO) 1,000 MG in EMPTY BAG 1 BAG IVPB ONE (01:47)
[2017-03-16] MEDS: ONDANSETRON 4 MG/2 ML VIAL IVP PRN ×3 (07:31→20:43)
[2017-03-16] MEDS: ENOXAPARIN 40 MG/0.4 ML SYRINGE SQ SCH (07:52)
[2017-03-16] MEDS: ACETAMINOPHEN IV (For NPO) 1,000 MG in EMPTY BAG 1 BAG IVPB PRN ×3 (07:52→20:41)
[2017-03-16] MEDS: FAMOTIDINE 20 MG/2 ML VIAL IV SCH ×2 (07:53→20:43)
[2017-03-16] MEDS: RUCAPARIB CAMSYLATE 300 MG PO SCH ×4 (07:54→21:18)
--- NOTE | 2017-03-16 14:56 | P.PN ---
Progress Note - Text Progress Note Date: 03/16/17 DATE OF SERVICE: 03/16/2017 PRESENTING COMPLAINT: Abdominal pain HISTORY OF PRESENT ILLNESS: 36-year-old female who presented with poor appetite losing weight and increasing abdominal pain with nausea vomiting body will keep anything down. Has small bowel movement on day of admission. Acute abdominal series revealed distended air-filled small bowel loops consistent with a small bowel obstruction. Admitted for the same. INTERVAL HISTORY: 03/16/2017: Sitting up in the bed appears comfortable. States abdominal pain is much better. General surgery believes pain is based on recurrence of peritoneal disease, may at some point need parenteral nutrition. Diet remains nothing by mouth, encourage patient to be up and about. We'll await input additional input from Gen. surgery. REVIEW OF SYSTEMS: Done for constitutional ,cardiovascular, GI, pulmonary with relevant findings as above. CURRENT MEDICATIONS IV Tylenol, Xanax, Lovenox, Pepcid, Ativan, morphine, Zofran, Compazine. PHYSICAL EXAM VITAL SIGNS: Temperature 99.3, heart rate 92, respiratory rate 16, blood pressure 107/68, oxygen saturation 97% on room air. GENERAL APPEARANCE: Lying in bed, not in distress, tired appearing EYES: Pupils equal. Conjunctiva normal. NECK: JVD not raised. Mass not palpable. RESPIRATORY: Respiratory effort normal. Lungs decreased to auscultation. CARDIOVASCULAR: First and second sounds normal. No edema. ABDOMEN: Soft. Liver and spleen not palpable. Diffuse tenderness. No mass palpable. No guarding or rigidity PSYCHIATRY: Alert and oriented x3. Mood and affect normal. INVESTIGATIONS: Hemoglobin 11.3, sodium 134, potassium 4.0, chloride 96, BUN 24, creatinine 0.80 , ASSESSMENT: -Acute small bowel obstruction a patient who has intra-abdominal metastatic disease from ovarian cancer, slow to respond -Metastatic ovarian cancer on chemotherapy. -Chronic left pleural effusion for malignancy with a drain in place. -Hypothyroidism. -Macrocytic anemia likely from underlying malignancy. PLAN: Maintain nothing by mouth status continue IV fluids, await additional input from Gen. surgery. May require parenteral nutrition. Plan of care discussed at the bedside with the patient she is in agreement. We'll follow closely. STEM SETTER statement: Patient was seen and examined by nurse practitioner Anika Santana and all elements of the case discussed with attending Dr. Martínez
--- NOTE | 2017-03-16 16:03 | P.PN ---
Subjective Progress Note Date: 03/16/17 Principal diagnosis: Small bowel obstruction The patient seen and examined at bedside. She states that since her computed tomography scan she has had 1 loose bowel function. She states that she feels more distended and uncomfortable. She states that she spent much of the night and morning dry heaving. She states that the Zofran mildly helps her nausea. She denies any additional bowel function. Objective - Vital Signs Vital signs: Vital Signs Temp 99.3 F 03/16/17 07:00 Pulse 104 H 03/16/17 07:00 Resp 16 03/16/17 11:14 BP 107/68 03/16/17 07:00 Pulse Ox 97 03/16/17 07:00 Intake & Output 03/15/17 03/16/17 03/16/17 18:59 06:59 18:59 Intake Total 1000 Balance 1000 Weight 54.431 kg Intake: Intake, IV Titration 1000 Amount Lactated Ringers 1,000 ml 1000 @ 125 mls/hr IV .Q8H JOHN Rx#:[id number] Other: Voiding Method Toilet # Voids 2 # Bowel Movements 1 - Constitutional General appearance: Present: cooperative, no acute distress - EENT Eyes: Present: EOMI, PERRLA ENT: Present: hearing grossly normal - Neck Neck: Present: normal ROM. Absent: lymphadenopathy, rigidity, stridor - Respiratory Details: No difficulty with respiration - Cardiovascular Rhythm: regular Heart sounds: normal: S1, S2 - Gastrointestinal Gastrointestinal Comment(s): Soft, mildly distended, tenderness to palpation and percussion in her epigastrium, no rebound, no guarding, no palpable masses - Integumentary Integumentary: Present: normal turgor - Musculoskeletal Musculoskeletal: Present: gait normal - Psychiatric Psychiatric: Present: A&O x's 3, appropriate affect, intact judgment & insight - Labs CBC & Chem 7: 03/15/17 05:18 03/15/17 05:18 Labs: Abnormal Lab Results - Last 24 Hours (Table) 03/15/17 Range/Units 05:18 Prealbumin 14.0 L (18.0-42.0) mg/dL Assessment and Plan (1) Bowel obstruction Current Visit: Yes Status: Acute Code(s): K56.609 - SNOMED Code(s): 13350592 Plan: 46-year-old female with known metastatic ovarian cancer with small bowel obstruction - Due to increased distention and dry heaving, we will place NG tube. This was discussed in depth with the patient and the patient's family. - Keep nothing by mouth - Repeat abdominal x-ray on 03/17 - Further recommendations to follow
[2017-03-16] MEDS: ALPRAZolam 0.5 MG TAB PO PRN (16:42)
--- NOTE | 2017-03-16 16:52 | XR ---
EXAMINATION TYPE: XR chest 1V portable DATE OF EXAM: 03/16/2017 COMPARISON: 10/04/2016 INDICATION: Nasogastric tube placement TECHNIQUE: Single frontal view of the chest is obtained. FINDINGS: The heart size is normal. The pulmonary vasculature is normal. Nasogastric tube is been introduced as the tip in the right upper quadrant of the abdomen. Port is pr esent on the right with tip in the distal superior vena cava region. Moderate size left pleural effus ion is stable. A left-sided catheter is present. No pneumothorax is evident. Surgical clips are in th e right. IMPRESSION: 1. Moderate left pleural effusion. 2. Lines and catheters discussed above.
[2017-03-16] MEDS: LORazepam 1 MG TAB PO SCH (19:50)
[2017-03-16] MEDS: RUCAPARIB CAMSYLATE PO SCH (21:18)
[2017-03-16] MEDS: LORazepam 2 MG/ML INJ IV PRN (22:15)
--- NOTE | 2017-03-16 22:41 | PN ---
PROGRESS NOTE DATE OF SERVICE: March 17, 2017. ATTENDING NOTE: Patient was seen and examined by me. I discussed with my nurse practitioner, Ms. Santana. This is a patient with known metastatic intraabdominal cancer on chemotherapy, including small-bowel obstruction. Had CT scan with through, did have a small bowel movement, had cramping abdominal pain. Awaiting input from surgery to decide if an NG tube will be put. We will try clear liquids. Abdomen soft. Tenderness present. Bowel sounds are present. ASSESSMENT: Ovarian cancer of intraabdominal metastatic disease leading to small bowel obstruction. PLAN: Continue current medication and treatment plan. Getting IV fluids. Overall prognosis is guarded. MMODL / IJN: [id number] /
[2017-03-17] MEDS: LACTATED RINGERS 1,000 ML IV SCH ×2 (00:17→06:08)
[2017-03-17] MEDS: PROCHLORPERAZINE 10 MG TAB PO SCH ×4 (00:18→18:20)
[2017-03-17] MEDS: ALPRAZolam 0.5 MG TAB PO PRN (01:02)
--- NOTE | 2017-03-17 01:03 | P.CONS ---
History of Present Illness - Reason for Consult Consult date: 03/16/17 small bowel obstruction. Ovarian cancer - History of Present Illness The patient is a 46-year-old white female well known to service. she was diagnosed with a stage I breast cancer on the right in 2005, hormone receptor negative and HER2 positive, for which she was treated with lumpectomy, followed by chemotherapy and Herceptin as well as radiation. In spring , she was diagnosed with ovarian cancer with peritoneal involvement. She had treatment with 4 cycles of carboplatin and Taxol and underwent debulking surgery in 11/[address] Red. She had additional 2 cycles of Carboplatin and Taxol completing treatment in late 01/09. she progressed in 09/10 with rising CA- 125, as well as left pleural effusion. Thoracentesis was positive for adenocarcinoma consistent with ovarian primary. The patient was started on Doxil, with carboplatin added after about 2-3 months due to aggressive increasing CA-125. She completed chiropractor and Doxil 04/12. By 08/11, she had progressed again with recurrent pleural effusions, requiring periodic thoracentesis. she was started on Rubraca ( she was BRCA1 positive). owever over the last couple months, she has continued to feel somewhat poorly. On evaluation by Dr. Red in 02/11 and there was concern for progression in the adnexal region. CA-125 has continued to show progression over the last2-3 months at least. The patient has had some nausea and vomiting related to her medication. This is improved with cutting the dose down. However over tst 1-2 days she developed progressive abdominal pain and distentio well asprogressive nausea and vomiting. She was unable to keep anything down. She therefore came into the emergency room. She underwent CT scan of the abdomen and pelvis as well as abdominal x-rays which showed evidence of small bowel obstruction. She was therefore admitted for further evaluation. 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) Menstruation: Reports postmenopausal Musculoskeletal: Reports muscle weakness Integumentary: Denies pruritus, Denies rash Neurological: Reports weakness Psychiatric: Reports depression Endocrine: Reports fatigue, Reports weight change Hematologic/Lymphatic: Reports as per HPI Past Medical History Past Medical History: Cancer Additional Past Medical History / Comment(s): R Breast-treated with partial R mastectomy/chemo/radiation, Ovarian cancer which pt states spread thru "my entire belly-including my liver"-tx with surgery and chemo-currently on oral chemo, MIGRAINE HEADACHE, pleural effusions-currently has L lung drainage tube, hypothyroid. History of Any Multi-Drug Resistant Organisms: None Reported Past Surgical History: Breast Surgery, Cholecystectomy, Hysterectomy Additional Past Surgical History / Comment(s): Total Hyst with debulking . PORTS WITH LAST ONE PLACED IN 2014, RIGHT PARTIAL MASTECTOMY WITH BILATERAL RECONSTRUCTION WITH IMPLANTS, THORACENTESIS/DRAIN LEFT IN L LUNG, 2013 COLONOSCOPY Past Anesthesia/Blood Transfusion Reactions: No Reported Reaction Smoking Status: Former smoker - Past Family History Mother Family Medical History: Cancer Additional Family Medical History / Comment(s): Lung ca-mother was a smoker. Father Family Medical History: Diabetes Mellitus Medications and Allergies Home Medications Medication Instructions Recorded Confirmed Type LORazepam [Ativan] 2 mg PO HS 09/08/15 03/15/17 History SUMAtriptan SUCCINATE [Imitrex] 100 mg PO DAILY PRN 09/08/15 03/15/17 History Prochlorperazine [Compazine] 10 mg PO Q6H PRN 01/26/16 03/15/17 History ALPRAZolam [Xanax] 0.5 mg PO Q6H PRN 10/04/16 03/15/17 History Rucaparib Camsylate [Rubraca] 300 mg PO QAM 10/04/16 03/15/17 History Ondansetron [Zofran ODT] 4 mg PO Q4H PRN 03/15/17 03/15/17 History Rucaparib Camsylate [Rubraca] 600 mg PO HS 03/15/17 03/15/17 History Allergies Allergy/AdvReac Type Severity Reaction Status Date / Time No Known Allergies Allergy Verified 03/15/17 07:00 Physical Exam Vitals: Vital Signs Temp Pulse Resp BP Pulse Ox 03/16/17 11:14 16 03/16/17 07:00 99.3 F 104 H 16 107/68 97 03/15/17 22:51 98.8 F 92 16 112/70 97 03/15/17 19:00 98.3 F 90 20 129/78 99 03/15/17 15:00 98 F 97 17 106/52 97 Intake and Output 03/15/17 03/16/17 03/16/17 22:59 06:59 14:59 Other: Voiding Method Toilet # Voids 1 2 # Bowel Movements 1 - Constitutional General appearance: no acute distress - EENT NG tube insitu Eyes: EOMI, PERRLA - Neck Neck: no lymphadenopathy Thyroid: bilateral: normal size - Respiratory Respiratory: right: diminished ( left lower lobe) - Cardiovascular Rhythm: regular Heart sounds: normal: S1, S2 - Gastrointestinal General gastrointestinal: absent bowel sounds, distended, soft - Integumentary Integumentary: normal - Neurologic Neurologic: CNII-XII intact - Musculoskeletal Musculoskeletal: generalized weakness, strength equal bilaterally - Psychiatric Psychiatric: A&O x's 3, appropriate affect Results CBC & Chem 7: 03/15/17 05:18 03/15/17 05:18 Labs: Abnormal Lab Results - Last 24 Hours (Table) 03/15/17 Range/Units 05:18 Prealbumin 14.0 L (18.0-42.0) mg/dL Chest x-ray: report reviewed Abdominal x-ray: report reviewed CT scan - abdomen: report reviewed CT scan - pelvis: report reviewed US - abdomen: report reviewed Assessment and Plan (1) Bowel obstruction Narrative/Plan: the patient is presenting with small bowel obstruction, which is a new event for her. As noted, she has ovarian cancer with rising CA-125 levels. Therefore the primary diagnosis is obstruction due to progression of malignancy. Ileus or obstruction Due to adhesions is also possible. however, obstruction due to progression of cancer is clinically more likely. - The patient has been seen by surgery. NG tube is in place suction. She does feel more comfortable. Continue treatment for surgery - if the patient does not improve with Conservative management, she may need surgical intervention. In that case, likely evaluation by [facility] oncology would be favored. Current Visit: Yes Status: Acute Code(s): K56.609 - SNOMED Code(s): 01820874 (2) Malnutrition Narrative/Plan: the patient is currently nothing by mouth. If bowel function does not resume with the next one to 2 days, TPN will be started Current Visit: Yes Status: Acute Code(s): E46 - UNSPECIFIED PROTEIN-CALORIE MALNUTRITION SNOMED Code(s): 0548682 (3) Ovarian cancer Narrative/Plan: the patient is currently on Rubraca for the past few months. Her CA-125 has actually been rising, without clinical evidence of disease progression by exam and imaging. Therefore she has continued the medication though she has had to cut the dose down from the standard, due to side effects. - If this is malignant obstruction, then that would definitely prove progression. In that case, assuming that the acute situation can be resolved , she will need change of therapy Current Visit: Yes Status: Acute Code(s): C56.9 - MALIGNANT NEOPLASM OF UNSPECIFIED OVARY SNOMED Code(s): 919138203
[2017-03-17] MEDS: ONDANSETRON 4 MG/2 ML VIAL IVP PRN ×3 (06:37→18:13)
[2017-03-17] MEDS: LORazepam 2 MG/ML INJ IV PRN (06:37)
--- NOTE | 2017-03-17 07:31 | XR ---
EXAMINATION TYPE: XR abdomen acute w cxr DATE OF EXAM ORDERED: 03/17/2017 HISTORY: Ileus. COMPARISON: Previous study dated 03/15/2017. FINDINGS: There is a MediPort in place via a right internal jugular approach. Its tip is in the supe rior vena cava. An NG tube is been passed. Its tip is in the stomach. The lungs are overinflated. The heart is not enlarged. There is a moderate left effusion. There is le ft basilar airspace disease. The overall appearance has not changed significantly. IMPRESSION: 1. COPD. 2. LEFT-SIDED EFFUSION. 3. LEFT BASILAR AIRSPACE DISEASE.
[2017-03-17 07:48] LABS: Anisocytosis Slight; Basophils % (A) 0 %; CHCM 33.9; Eosinophils % (A) 1 %; HDW 3.49; HGB 10.3 gm/dL (11.4-16.0); Luc # (Auto) 0.07; Luc % (Auto) 2; Lymphocytes # (A) 0.7 k/uL (1.0-4.8); Lymphocytes % (A) 18 %; MCH 34.5 pg (25.0-35.0); MCHC 33.3 g/dL (31.0-37.0); MCV 103.6 fL (80.0-100.0); Macrocytosis Moderate; Mean Platelet Volume 7.3; Monocytes # (A) 0.3 k/uL (0-1.0); Monocytes % (A) 7 %; Neutrophils # (A) 2.9 k/uL (1.3-7.7); Neutrophils % (A) 73 %; Poikilocytosis Slight; RBC 2.99 m/uL (3.80-5.40); RDW 16.1 % (11.5-15.5); WBC (Perox) 4.11
[2017-03-17] MEDS: ENOXAPARIN 40 MG/0.4 ML SYRINGE SQ SCH (08:11)
[2017-03-17] MEDS: FAMOTIDINE 20 MG/2 ML VIAL IV SCH ×2 (08:11→20:59)
[2017-03-17 08:12] LABS: ALT 32 U/L (9-52); AST 19 U/L (14-36); Alkaline Phosphatase 83 U/L (38-126); Anion Gap 14 mmol/L; Blood Urea Nitrogen 11 mg/dL (7-17); Calcium 8.6 mg/dL (8.4-10.2); Carbon Dioxide 22 mmol/L (22-30); Chloride 100 mmol/L (98-107); Glucose 56 mg/dL (74-99); Non-African American GFR(MDRD) >60 (>60 ml/min/1.73 sqM); Potassium 3.5 mmol/L (3.5-5.1); Sodium 136 mmol/L (137-145); Total Bilirubin 0.9 mg/dL (0.2-1.3)
[2017-03-17] MEDS: RUCAPARIB CAMSYLATE 300 MG PO SCH ×4 (08:12→20:59)
[2017-03-17 10:15] LABS: Glucose,Whole Blood 69 mg/dL (75-99)
[2017-03-17] MEDS: DEXTROSE 5% IN WATER 1,000 ML IV SCH ×2 (10:40→20:59)
--- NOTE | 2017-03-17 11:15 | P.PN ---
Subjective Progress Note Date: 03/17/17 Principal diagnosis: Small bowel obstruction Patient seen and examined at bedside. Total from NG tube has been 400 mL since placement yesterday. The patient states she feels less bloated today. She had 1 liquid bowel movement this morning. She denies nausea and denies vomiting. She has no additional complaints at this time. Objective - Vital Signs Vital signs: Vital Signs Temp 100.0 F H 03/17/17 07:00 Pulse 93 03/17/17 07:00 Resp 16 03/17/17 08:00 BP 108/68 03/17/17 07:00 Pulse Ox 96 03/17/17 07:00 Intake & Output 03/16/17 03/17/17 03/17/17 18:59 06:59 18:59 Intake Total 0 Output Total 100 Balance 0 -100 Weight 54.431 kg Intake: Oral 0 Output: Stool 100 Other: Voiding Method Toilet Toilet # Voids 3 2 # Bowel Movements 0 - Constitutional General appearance: Present: cooperative, no acute distress - EENT Eyes: Present: EOMI, PERRLA ENT: Present: hearing grossly normal - Neck Neck: Present: normal ROM. Absent: lymphadenopathy, rigidity, stridor - Respiratory Details: No difficulty with respiration - Cardiovascular Rhythm: regular Heart sounds: normal: S1, S2 - Gastrointestinal Gastrointestinal Comment(s): Soft, nontender, mild distention, no rebound, no guarding - Integumentary Integumentary: Present: normal turgor - Musculoskeletal Musculoskeletal: Present: gait normal - Psychiatric Psychiatric: Present: A&O x's 3, appropriate affect, intact judgment & insight - Labs CBC & Chem 7: 03/17/17 07:20 03/17/17 07:20 Labs: Abnormal Lab Results - Last 24 Hours (Table) 03/15/17 03/17/17 03/17/17 Range/Units 05:18 07:20 07:20 RBC 2.99 L (3.80-5.40) m/uL Hgb 10.3 L (11.4-16.0) gm/dL Hct 31.0 L (34.0-46.0) % MCV 103.6 H (80.0-100.0) fL RDW 16.1 H (11.5-15.5) % Lymphocytes # 0.7 L (1.0-4.8) k/uL Sodium 136 L (137-145) mmol/L Glucose 56 L (74-99) mg/dL POC Glucose (mg/dL) (75-99) mg/dL Total Protein 6.0 L (6.3-8.2) g/dL Prealbumin 14.0 L (18.0-42.0) mg/dL 03/17/17 Range/Units 10:14 RBC (3.80-5.40) m/uL Hgb (11.4-16.0) gm/dL Hct (34.0-46.0) % MCV (80.0-100.0) fL RDW (11.5-15.5) % Lymphocytes # (1.0-4.8) k/uL Sodium (137-145) mmol/L Glucose (74-99) mg/dL POC Glucose (mg/dL) 69 L (75-99) mg/dL Total Protein (6.3-8.2) g/dL Prealbumin (18.0-42.0) mg/dL Assessment and Plan (1) Bowel obstruction Current Visit: Yes Status: Acute Code(s): K56.609 - SNOMED Code(s): 76628605 Plan: 46-year-old female with known metastatic ovarian cancer with small bowel obstruction - NG tube output has been approximately 400 mL of bilious material. Due to bowel function and after review of abdominal x-ray we will clamp NG tube and start trial of clears. - Further recommendations to follow
--- NOTE | 2017-03-17 16:37 | PN ---
PROGRESS NOTE DATE OF SERVICE: 03/17/2017 PRESENTING COMPLAINT: Bowel obstruction. INTERVAL HISTORY: This is a patient with metastatic ovarian cancer with intra-abdominal metastasis, presented with small-bowel obstruction. NG tube was placed yesterday. The patient has passed a small gas and a small bowel movement. at the bedside. N.p.o. REVIEW OF SYSTEMS: Done for constitutional, cardiovascular, GI, pulmonary; relevant findings as above. CURRENT MEDICATIONS: Reviewed that include IV fluids. PHYSICAL EXAMINATION: Temperature 100, pulse 93, respirations 16, blood pressure 108/68, pulse ox 96% on room air. GENERAL APPEARANCE: Sitting up, tired-appearing. ENT: NG tube in place. NECK: JVD not raised. Mass not palpable. RESPIRATORY: Effort normal. LUNGS: Decreased breath sounds. CARDIOVASCULAR: First and second sounds normal. No edema. ABDOMEN: Soft, tender. No guarding or rigidity. PSYCHIATRY: Alert and oriented x3. Mood and affect slightly anxious-appearing. INVESTIGATIONS: White count 4, hemoglobin 10.3. Potassium 3.5. Abdominal x-ray showing air-fluid levels. ASSESSMENT: 1. Acute small-bowel obstruction in a patient with intra-abdominal metastatic disease from ovarian cancer, not improving, now has an nasogastric tube in place. 2. Metastatic ovarian cancer on chemotherapy. 3. Chronic left pleural effusion from malignancy with a drain in place. 4. Hypothyroidism. 5. Macrocytic anemia, likely from underlying malignancy. 6. Moderate protein-calorie malnutrition with decreased pre-albumin, decreased muscle mass from underlying malignancy. PLAN: NG tube in place. Continue IV fluids. Overall prognosis is not good, given that patient has intra-abdominal malignancy with bowel obstruction. The patient was seen by Dr. Thao from Oncology. The patient will definitely need TPN to be started shortly. MMODL / IJN: [id number] /
[2017-03-17] MEDS: RUCAPARIB CAMSYLATE PO SCH (20:59)
[2017-03-17] MEDS: LORazepam 1 MG TAB PO SCH (20:59)
[2017-03-17 21:08] LABS: Glucose,Whole Blood 124 mg/dL (75-99)
[2017-03-18] MEDS: PROCHLORPERAZINE 10 MG TAB PO SCH ×4 (01:14→19:53)
[2017-03-18] MEDS: DEXTROSE 5% IN WATER 1,000 ML IV SCH ×2 (06:11→17:35)
[2017-03-18] MEDS: FAMOTIDINE 20 MG/2 ML VIAL IV SCH ×2 (08:32→19:51)
[2017-03-18] MEDS: ONDANSETRON 4 MG/2 ML VIAL IVP PRN ×2 (08:32→14:36)
[2017-03-18] MEDS: ENOXAPARIN 40 MG/0.4 ML SYRINGE SQ SCH (08:33)
[2017-03-18] MEDS: RUCAPARIB CAMSYLATE 300 MG PO SCH ×4 (08:33→23:20)
[2017-03-18 08:56] LABS: ALT 26 U/L (9-52); AST 20 U/L (14-36); Alkaline Phosphatase 71 U/L (38-126); Anion Gap 9 mmol/L; Blood Urea Nitrogen 2 mg/dL (7-17); Calcium 8.7 mg/dL (8.4-10.2); Carbon Dioxide 28 mmol/L (22-30); Chloride 98 mmol/L (98-107); Glucose 117 mg/dL (74-99); Non-African American GFR(MDRD) >60 (>60 ml/min/1.73 sqM); Potassium 3.2 mmol/L (3.5-5.1); Sodium 135 mmol/L (137-145); Total Bilirubin 0.4 mg/dL (0.2-1.3); Total Protein 5.9 g/dL (6.3-8.2)
--- NOTE | 2017-03-18 11:46 | P.PN ---
Subjective Progress Note Date: 03/18/17 Principal diagnosis: Small bowel obstruction Patient seen and examined at bedside. We performed a trial of NG tube clamping yesterday with clear liquid diet. The patient did not tolerate this and stated she had a large amount of abdominal cramping and nausea. Total from NG tube has been 650 mL in the overnight shift. She had 1 liquid bowel movement this morning measured at 100 mL. She denies nausea and denies vomiting. She has no additional complaints at this time. Objective - Vital Signs Vital signs: Vital Signs Temp 98.5 F 03/18/17 07:00 Pulse 92 03/18/17 08:00 Resp 16 03/18/17 08:00 BP 116/69 03/18/17 07:00 Pulse Ox 91 L 03/18/17 07:00 Intake & Output 03/17/17 03/18/17 03/18/17 18:59 06:59 18:59 Intake Total 0 Output Total 750 Balance -750 0 Weight 54.431 kg Intake: Oral 0 Output: Gastric Drainage 450 Stool 300 Other: Voiding Method Toilet Toilet Toilet # Voids 6 1 # Bowel Movements 0 1 - Constitutional General appearance: Present: cooperative, no acute distress - EENT Eyes: Present: EOMI, PERRLA ENT: Present: hearing grossly normal - Neck Neck: Present: normal ROM. Absent: lymphadenopathy, stridor - Respiratory Details: No difficulty with respiration - Cardiovascular Rhythm: regular Heart sounds: normal: S1, S2 - Gastrointestinal Gastrointestinal Comment(s): Soft, nontender, improved distention, no rebound, no guarding - Integumentary Integumentary: Present: normal turgor - Musculoskeletal Musculoskeletal: Present: generalized weakness - Psychiatric Psychiatric: Present: A&O x's 3, appropriate affect, intact judgment & insight - Labs CBC & Chem 7: 03/17/17 07:20 03/18/17 07:24 Labs: Abnormal Lab Results - Last 24 Hours (Table) 03/17/17 03/18/17 Range/Units 21:04 07:24 Sodium 135 L (137-145) mmol/L Potassium 3.2 L (3.5-5.1) mmol/L BUN 2 L (7-17) mg/dL Glucose 117 H (74-99) mg/dL POC Glucose (mg/dL) 124 H (75-99) mg/dL Total Protein 5.9 L (6.3-8.2) g/dL Albumin 3.2 L (3.5-5.0) g/dL Assessment and Plan (1) Bowel obstruction Current Visit: Yes Status: Acute Code(s): K56.609 - SNOMED Code(s): 72104032 Plan: 46-year-old female with known metastatic ovarian cancer with small bowel obstruction - Due to inability to tolerate NG tube clamping with clear liquid diet and continued output from the NG tube, I have discussed the case with Dr. Thao and we will begin TPN for nutrition, consultation nutrition has been placed - Continue NG tube to low intermittent suction - Further recommendations to follow
[2017-03-18 14:24] LABS: ALT 27 U/L (9-52); AST 20 U/L (14-36); Alkaline Phosphatase 78 U/L (38-126); Anion Gap 9 mmol/L; Blood Urea Nitrogen 2 mg/dL (7-17); Calcium 8.7 mg/dL (8.4-10.2); Carbon Dioxide 33 mmol/L (22-30); Chloride 94 mmol/L (98-107); Glucose 112 mg/dL (74-99); Magnesium 1.5 mg/dL (1.6-2.3); Non-African American GFR(MDRD) >60 (>60 ml/min/1.73 sqM); Sodium 136 mmol/L (137-145); Total Bilirubin 0.4 mg/dL (0.2-1.3); Total Protein 5.9 g/dL (6.3-8.2)
[2017-03-18] MEDS ORDERED: MVI, ADULT NO.4 WITH VIT K 10 ML, TRACE (CONC-1ML/DOSE) 1 ML in AMINO ACID 5%-D25W+LYTE... IV ONE ×3 (16:00)
[2017-03-18] MEDS: MAGNESIUM SULFATE-D5W PMX 1 GM in DEXTROSE/WATER 1 100ML.BAG IVPB SCH ×2 (16:46→17:43)
[2017-03-18 18:01] LABS: Glucose,Whole Blood 151 mg/dL (75-99)
[2017-03-18] MEDS: POTASSIUM CHLORIDE 10 MEQ, LIDOCAINE 2% INJ 10 MG in SODIUM CHLORIDE 0.9% 100 ML IVPB SCH ×2 (19:50→23:08)
[2017-03-18] MEDS: LORazepam 1 MG TAB PO SCH (23:05)
[2017-03-18] MEDS: RUCAPARIB CAMSYLATE PO SCH (23:20)
[2017-03-19 00:33] LABS: Glucose,Whole Blood 118 mg/dL (75-99)
[2017-03-19] MEDS: PROCHLORPERAZINE 10 MG TAB PO SCH ×4 (02:46→20:12)
--- NOTE | 2017-03-19 04:14 | PN ---
PROGRESS NOTE DATE OF SERVICE: March 18, 2017. PRESENTING COMPLAINT: Bowel obstruction. INTERVAL HISTORY: This is a very pleasant patient with metastatic ovarian cancer. Intraabdominal METS, presented with small-bowel obstruction. NG tube remains in place. Has not passed any bowel movement. Earlier today TPN was started, still having abdominal pain intermittently. NG tube remains in place. Till this morning overnight shift 650 mL obtained. PHYSICAL EXAMINATION: Temperature 99.2, pulse 90, respiratory rate 18, blood pressure 112/75, pulse ox 97% room air. GENERAL APPEARANCE: Lying in bed, tired appearing. HEENT NG tube in place. NECK: JVD not raised. Mass not palpable. Respiratory effort lungs decreased breath sounds. Cardiovascular first and second sounds normal. No edema. ABDOMEN: Soft. Diffuse tenderness. Bowel sounds are sluggish. Slight distention. Psych alert and oriented times three. Mood and affect anxious. INVESTIGATIONS: Potassium 3, albumin 3.2, magnesium 1.5. ASSESSMENT: 1. Acute small-bowel obstruction in a patient with intraabdominal metastatic disease, ovarian cancer. Not improving. Has an NG tube in place. 2. Metastatic ovarian cancer on chemotherapy with intraabdominal spread. 3. Chronic left pleural effusion from malignancy with a drain in place. 4. Hypothyroidism. 5. Macrocytic anemia likely from underlying malignancy. 6. Moderate protein calorie malnutrition from decreased oral intake. 7. Hypomagnesemia. 8. Hypokalemia. 9. IV TPN in place. PLAN: Prognosis does not look good. Continue current medication and treatment plan. TPN has been started. Follow with surgery and oncology. Care was discussed with the patient. MMODL / IJN: [id number] /
[2017-03-19 06:32] LABS: Glucose,Whole Blood 130 mg/dL (75-99)
[2017-03-19 06:53] LABS: Ionized Calcium 4.7 mg/dL (4.5-5.3)
[2017-03-19] MEDS: DEXTROSE 5% IN WATER 1,000 ML IV SCH ×3 (07:00→17:59)
[2017-03-19 07:03] LABS: ALT 28 U/L (9-52); AST 22 U/L (14-36); Alkaline Phosphatase 67 U/L (38-126); Anion Gap 6 mmol/L; Blood Urea Nitrogen 5 mg/dL (7-17); Calcium 8.2 mg/dL (8.4-10.2); Carbon Dioxide 35 mmol/L (22-30); Chloride 96 mmol/L (98-107); Glucose 105 mg/dL (74-99); Magnesium 1.9 mg/dL (1.6-2.3); Non-African American GFR(MDRD) >60 (>60 ml/min/1.73 sqM); Phosphorus 3.6 mg/dL (2.5-4.5); Sodium 137 mmol/L (137-145); Total Bilirubin 0.3 mg/dL (0.2-1.3); Total Protein 5.4 g/dL (6.3-8.2)
[2017-03-19] MEDS ORDERED: Potassium Replacement Protocol 1 EACH MISC MISCELLANE PRN (07:50)
[2017-03-19] MEDS ORDERED: POTASSIUM CHLORIDE 20 MEQ in WATER FOR INJECTION 1 100ML.BAG IVPB ONE (07:50)
[2017-03-19] MEDS ORDERED: BENZOCAINE SPRAY 1 SPRAY CAN ONE (08:35)
[2017-03-19] MEDS: FAMOTIDINE 20 MG/2 ML VIAL IV SCH ×2 (08:40→20:12)
[2017-03-19] MEDS: POTASSIUM CHLORIDE 20 MEQ in WATER FOR INJECTION 1 100ML.BAG IVPB SCH ×2 (08:41→12:43)
[2017-03-19] MEDS: ENOXAPARIN 40 MG/0.4 ML SYRINGE SQ SCH (08:41)
[2017-03-19] MEDS: RUCAPARIB CAMSYLATE 300 MG PO SCH ×4 (08:42→20:17)
[2017-03-19] MEDS ORDERED: BENZOCAINE SPRAY 1 SPRAY CAN MUCOUS MEM PRN (08:55)
[2017-03-19 11:57] LABS: Glucose,Whole Blood 126 mg/dL (75-99)
--- NOTE | 2017-03-19 13:37 | XR ---
EXAMINATION TYPE: XR abdomen 2V DATE OF EXAM: 03/19/2017 CLINICAL HISTORY: Small bowel obstruction progress study TECHNIQUE: Supine and upright views of the abdomen are obtained. COMPARISON: CT abdomen pelvis March 15, 2017. Acute abdominal x-ray series March 17, 2017 FINDINGS: Nasogastric tube is stable in appearance. There are persistent gaseous dilated small bowel loops with air-fluid levels in the upper to midabdomen. No significant change in degree of dilatation is identified. Some residual contrast is passed into nondistended colon and rectum. Scattered pelvic phleboliths are seen. Surgical clips left pelvis are redemonstrated. Cholecystectomy clips are again seen. There is persistent small to moderate-sized left pleural fluid collection with percutaneous dr ainage catheter. Associated left basilar atelectasis and/or infiltrate is again seen. IMPRESSION: Overall stable findings, findings consistent with high-grade but partial distal small patricia wel obstruction remain present since admission.
--- NOTE | 2017-03-19 14:24 | P.PN ---
<ClevelandSheronShayna M - Last Filed: 03/19/17 14:03> Subjective Progress Note Date: 03/19/17 46-year-old female seen and examined at bedside currently is sitting up in a chair nasal gastric tube connected to suction 200cc the last 5 hours. Patient states she's had a small stool. States there is less abdominal cramping and less nausea sensation. Family at bedside. Did note the potassium is 3 in which replacement is being given. Patient has a known history of metastatic ovarian cancer. With new onset small bowel obstruction. Patient did have a abdominal x-ray this morning stable findings consistent with high-grade partial small bowel obstruction Objective - Vital Signs Vital signs: Vital Signs Temp 98.6 F 03/19/17 07:00 Pulse 88 03/19/17 07:00 Resp 18 03/19/17 07:00 BP 101/60 03/19/17 07:00 Pulse Ox 96 03/19/17 07:00 Intake & Output 03/18/17 03/19/17 03/19/17 18:59 06:59 18:59 Output Total 100 Balance -100 Weight 54.431 kg Output: Stool 100 Other: Voiding Method Toilet Toilet Toilet # Voids 2 1 # Bowel Movements 1 - Exam Physical exam Pleasant 46-year-old female sitting up in a chair thin pleasant appears in no acute distress Lungs diminished at the bases otherwise adequate air movement Heart S1-S2 audible regular denying chest pain Abdomen nasal gastric tube connected to suction " less abdominal cramping "states one small stool this morning reports less nausea sensation no guarding no rebound Extremities thin no edema noted - Labs CBC & Chem 7: 03/17/17 07:20 03/19/17 05:55 Labs: Abnormal Lab Results - Last 24 Hours (Table) 03/18/17 03/18/17 03/18/17 Range/Units 13:48 14:47 18:00 Sodium 136 L (137-145) mmol/L Potassium 3.0 L* (3.5-5.1) mmol/L Chloride 94 L (98-107) mmol/L Carbon Dioxide 33 H (22-30) mmol/L BUN 2 L (7-17) mg/dL Glucose 112 H (74-99) mg/dL POC Glucose (mg/dL) 151 H (75-99) mg/dL Calcium (8.4-10.2) mg/dL Ionized Calcium Mercedes 4.4 L (4.5-5.3) mg/dL Magnesium 1.5 L (1.6-2.3) mg/dL Total Protein 5.9 L (6.3-8.2) g/dL Albumin 3.2 L (3.5-5.0) g/dL 03/19/17 03/19/17 03/19/17 Range/Units 00:27 01:17 05:55 Sodium (137-145) mmol/L Potassium 3.2 L 3.0 L* (3.5-5.1) mmol/L Chloride 96 L (98-107) mmol/L Carbon Dioxide 35 H (22-30) mmol/L BUN 5 L (7-17) mg/dL Glucose 105 H (74-99) mg/dL POC Glucose (mg/dL) 118 H (75-99) mg/dL Calcium 8.2 L (8.4-10.2) mg/dL Ionized Calcium Mercedes (4.5-5.3) mg/dL Magnesium (1.6-2.3) mg/dL Total Protein 5.4 L (6.3-8.2) g/dL Albumin 2.9 L (3.5-5.0) g/dL 03/19/17 03/19/17 Range/Units 06:30 11:54 Sodium (137-145) mmol/L Potassium (3.5-5.1) mmol/L Chloride (98-107) mmol/L Carbon Dioxide (22-30) mmol/L BUN (7-17) mg/dL Glucose (74-99) mg/dL POC Glucose (mg/dL) 130 H 126 H (75-99) mg/dL Calcium (8.4-10.2) mg/dL Ionized Calcium Mercedes (4.5-5.3) mg/dL Magnesium (1.6-2.3) mg/dL Total Protein (6.3-8.2) g/dL Albumin (3.5-5.0) g/dL Assessment and Plan Plan: Impression Present on admission nausea vomiting abdominal pain suspect due to a partial small bowel obstruction History of right breast cancer treated with partial right mastectomy chemoradiation treatment Metastatic Ovarian cancer Moderate protein calorie malnutrition due to poor caloric intake Electrolyte abnormality hypo-magnesium, hypokalemia Chronic left pleural effusion for malignancy Macrocytic anemia likely due to underlying malignancy Plan Electrolytes to be corrected per protocol Continue TPN for nutritional support IV fluid as ordered Continue nasal gastric tube to low intermittent suction Further recommendations pending will follow The above impression and plan of care have been discussed and directed by signing physician. Shayna Guthrie nurse practitioner acting as scribe for signing physician. <Andrea Hicks - Last Filed: 03/21/17 12:21> Objective - Vital Signs Vital signs: Vital Signs Temp 99 F 03/21/17 07:00 Pulse 111 H 03/21/17 07:00 Resp 16 03/21/17 07:00 BP 100/66 03/21/17 07:00 Pulse Ox 98 03/21/17 07:00 Intake & Output 03/20/17 03/21/17 03/21/17 18:59 06:59 18:59 Intake Total 932.25 983.583 Output Total 250 Balance 682.25 983.583 Weight 54.5 kg 54.5 kg Intake: Intake, IV Titration 932.25 983.583 Amount Mvi, Adult No.4 with Vit 932.25 983.583 K 10 ml Trace (Conc-1Ml/ Dose) 1 ml In Amino Acid 5%-D25w+Lytes*E* 1,000 ml @ 55 mls/hr IV .[id number] [facility] Rx#:[id number] Output: Gastric Drainage 250 Other: Voiding Method Toilet Toilet - Labs CBC & Chem 7: 03/17/17 07:20 03/21/17 05:20 Labs: Abnormal Lab Results - Last 24 Hours (Table) 03/20/17 03/21/17 03/21/17 Range/Units 17:58 00:38 05:20 Potassium 3.4 L (3.5-5.1) mmol/L Chloride 94 L (98-107) mmol/L Carbon Dioxide 34 H (22-30) mmol/L Glucose 109 H (74-99) mg/dL POC Glucose (mg/dL) 123 H 111 H (75-99) mg/dL Phosphorus 4.7 H (2.5-4.5) mg/dL 03/21/17 03/21/17 Range/Units 06:47 12:18 Potassium (3.5-5.1) mmol/L Chloride (98-107) mmol/L Carbon Dioxide (22-30) mmol/L Glucose (74-99) mg/dL POC Glucose (mg/dL) 114 H 120 H (75-99) mg/dL Phosphorus (2.5-4.5) mg/dL Assessment and Plan (1) Bowel obstruction Current Visit: Yes Status: Acute Priority: High Code(s): K56.609 - SNOMED Code(s): 24680778
--- NOTE | 2017-03-19 16:40 | P.PN ---
Progress Note - Text Progress Note Date: 03/19/17 DATE OF SERVICE: 03/19/2017 PRESENTING COMPLAINT: Abdominal pain HISTORY OF PRESENT ILLNESS: 36-year-old female who presented with poor appetite losing weight and increasing abdominal pain with nausea vomiting body will keep anything down. Has small bowel movement on day of admission. Acute abdominal series revealed distended air-filled small bowel loops consistent with a small bowel obstruction. Admitted for the same. INTERVAL HISTORY: 03/19/2017: Patient seen in follow-up, sitting in a chair at the bedside, NG tube in left nares, draining dark brown fluid. Abdominal pain continues, though better but no worse either. Had some questions regarding length of time it takes to resolving ileus, referred questions to Gen. surgery, did inform the patient and in each case individual. Potassium low this morning received supplementation, abdominal x-ray this morning revealed findings stable but consistent with high-grade partial small bowel obstruction. Remains nothing by mouth, NG tube to low intermittent suction, TPN for nutritional support. REVIEW OF SYSTEMS: Done for constitutional ,cardiovascular, GI, pulmonary with relevant findings as above. CURRENT MEDICATIONS IV Tylenol, Xanax, Lovenox, Pepcid, Ativan, morphine, Zofran, Compazine. PHYSICAL EXAM VITAL SIGNS: Temperature 98.6, pulse 88, respirations 18, blood pressure 101/60, oxygen saturation 96% on room air. GENERAL APPEARANCE: Sitting in a chair, not in distress, tired appearing EYES: Pupils equal. Conjunctiva normal. NECK: JVD not raised. Mass not palpable. RESPIRATORY: Respiratory effort normal. Lungs decreased to auscultation. CARDIOVASCULAR: First and second sounds normal. No edema. ABDOMEN: Soft. Liver and spleen not palpable. Diffuse tenderness. No mass palpable. No guarding or rigidity PSYCHIATRY: Alert and oriented x3. Mood and affect normal. INVESTIGATIONS: Sodium 137, potassium 3.2, BUN 5, creatinine 0.60, Accu-Cheks noted. ASSESSMENT: -Acute small bowel obstruction a patient who has intra-abdominal metastatic disease from ovarian cancer, not improving, NG tube remains in place. -Metastatic ovarian cancer on chemotherapy. -Chronic left pleural effusion from malignancy with a drain in place. -Hypothyroidism. -Macrocytic anemia likely from underlying malignancy. -Moderate protein calorie malnutrition from decreased oral intake. -Hypomagnesemia. -Hypokalemia. -IV TPN in place. PLAN: Maintain nothing by mouth status continue IV fluids, NG tube to low intermittent suction, currently TPN infusing, low potassium and magnesium replaced per protocol. Gen. surgery and oncology continue to follow. Plan of care discussed at the bedside with the patient and and they are in agreement. We'll follow closely. E BUSINESS MANAGER statement: Patient was seen and examined by nurse practitioner Anika Santana and all elements of the case discussed with attending Dr. Martínez
--- NOTE | 2017-03-19 16:41 | P.PN ---
Subjective Progress Note Date: 03/19/17 Principal diagnosis: SBO Pt seen in follow up, she continues to have substantial output from NG tube, she is sipping water and chewing ice, no vomiting, no c/o r/t to TPN, CBG have been elevated. Pt has abd distension that is persistent, it hurts on the left side to take a deep breath. She is urinating, no BM but she has tarry stool that she has to clean with soap and water to remove it. Objective - Vital Signs Vital signs: Vital Signs Temp 97.8 F 03/19/17 15:00 Pulse 100 03/19/17 15:00 Resp 18 03/19/17 15:00 BP 116/67 03/19/17 15:00 Pulse Ox 98 03/19/17 15:00 Intake & Output 03/18/17 03/19/17 03/19/17 18:59 06:59 18:59 Output Total 100 Balance -100 Weight 54.431 kg 55 kg Output: Stool 100 Other: Voiding Method Toilet Toilet Toilet # Voids 2 1 # Bowel Movements 1 - Constitutional General appearance: Present: average body habitus, cooperative, no acute distress - EENT Eyes: Present: anicteric sclerae, EOMI, PERRLA, normal appearance ENT: Present: hearing grossly normal, normal oropharynx - Respiratory Respiratory: right: diminished (base), bilateral: CTA - Cardiovascular Details: mild tachycardia, regular rhythm, no gallop or rub Heart sounds: normal: S1, S2 - Peripheral edema leg Peripheral Edema: bilateral: None - Gastrointestinal Gastrointestinal Comment(s): mild distension, firmness in the lower abd, 2 bowel sounds in 1 min, distant - Neurologic Neurologic: Present: CNII-XII intact - Musculoskeletal Musculoskeletal: Present: strength equal bilaterally - Psychiatric Psychiatric: Present: A&O x's 3, appropriate affect, intact judgment & insight - Labs CBC & Chem 7: 03/17/17 07:20 03/19/17 05:55 Labs: Abnormal Lab Results - Last 24 Hours (Table) 03/18/17 03/19/17 03/19/17 Range/Units 18:00 00:27 01:17 Potassium 3.2 L (3.5-5.1) mmol/L Chloride (98-107) mmol/L Carbon Dioxide (22-30) mmol/L BUN (7-17) mg/dL Glucose (74-99) mg/dL POC Glucose (mg/dL) 151 H 118 H (75-99) mg/dL Calcium (8.4-10.2) mg/dL Total Protein (6.3-8.2) g/dL Albumin (3.5-5.0) g/dL 03/19/17 03/19/17 03/19/17 Range/Units 05:55 06:30 11:54 Potassium 3.0 L* (3.5-5.1) mmol/L Chloride 96 L (98-107) mmol/L Carbon Dioxide 35 H (22-30) mmol/L BUN 5 L (7-17) mg/dL Glucose 105 H (74-99) mg/dL POC Glucose (mg/dL) 130 H 126 H (75-99) mg/dL Calcium 8.2 L (8.4-10.2) mg/dL Total Protein 5.4 L (6.3-8.2) g/dL Albumin 2.9 L (3.5-5.0) g/dL Assessment and Plan (1) Bowel obstruction Narrative/Plan: Currently being medically managed. Abd xray has been requested for follow up study. If obstruction persists recommendation is going to be to transfer to [facility] for Carpenter Repairer /Onc evaluation and treatment Cont decompression with NG tube, NPO other then sips of water and ice Current Visit: Yes Status: Acute Priority: High Code(s): K56.609 - SNOMED Code(s): 49781500 (2) Malnutrition Narrative/Plan: Cont TPN and fluids. Dietitian monitoring. Close monitoring of CBG, may need SSI Current Visit: Yes Status: Acute Priority: High Code(s): E46 - UNSPECIFIED PROTEIN-CALORIE MALNUTRITION SNOMED Code(s): 7711819 (3) Ovarian cancer Narrative/Plan: Concern is that SBO is r/t ovarian malignancy progression. If SBO is not able to be resolved medically she may possibly need Carpenter Repairer/Onc surgical intervention. Follow up xray ordered, further recommendations to follow Pt states she has not taken rubraca since last Sunday, ok to continue to hold for now. Current Visit: Yes Status: Chronic Priority: High Code(s): C56.9 - MALIGNANT NEOPLASM OF UNSPECIFIED OVARY SNOMED Code(s): 747333021 Plan: GI and DVT prophylaxis are ordered
[2017-03-19] MEDS: MVI, ADULT NO.4 WITH VIT K 10 ML, TRACE (CONC-1ML/DOSE) 1 ML in AMINO ACID 5%-D25W+LYTE... IV SCH ×3 (17:58)
[2017-03-19] MEDS: FAT EMULSION 20% 250 ML in EMPTY BAG 1 BAG IV SCH (17:58)
--- NOTE | 2017-03-19 18:04 | P.PN ---
Subjective Progress Note Date: 03/19/17 Principal diagnosis: small bowel obstruction Since my absence the patient had a nasogastric tube placed. She had relief of her symptoms following that. Nasogastric output has been bilious. It was clamped at one point and the patient had recurrent symptoms. She has had minimal bowel function over the last several days. She has been ambulate in. She was started on TPN. Discussion regarding possible transfer to [facility] taking place. Objective - Vital Signs Vital signs: Vital Signs Temp 97.8 F 03/19/17 15:00 Pulse 100 03/19/17 15:00 Resp 18 03/19/17 15:00 BP 116/67 03/19/17 15:00 Pulse Ox 98 03/19/17 15:00 Intake & Output 03/18/17 03/19/17 03/19/17 18:59 06:59 18:59 Output Total 100 100 Balance -100 -100 Weight 54.431 kg 55 kg Output: Stool 100 100 Other: Voiding Method Toilet Toilet Toilet # Voids 2 1 # Bowel Movements 1 - Exam abdomen: Soft, mild distention, mild diffuse tenderness - Labs CBC & Chem 7: 03/17/17 07:20 03/19/17 05:55 Labs: Abnormal Lab Results - Last 24 Hours (Table) 03/18/17 03/19/17 03/19/17 Range/Units 18:00 00:27 01:17 Potassium 3.2 L (3.5-5.1) mmol/L Chloride (98-107) mmol/L Carbon Dioxide (22-30) mmol/L BUN (7-17) mg/dL Glucose (74-99) mg/dL POC Glucose (mg/dL) 151 H 118 H (75-99) mg/dL Calcium (8.4-10.2) mg/dL Total Protein (6.3-8.2) g/dL Albumin (3.5-5.0) g/dL 03/19/17 03/19/17 03/19/17 Range/Units 05:55 06:30 11:54 Potassium 3.0 L* (3.5-5.1) mmol/L Chloride 96 L (98-107) mmol/L Carbon Dioxide 35 H (22-30) mmol/L BUN 5 L (7-17) mg/dL Glucose 105 H (74-99) mg/dL POC Glucose (mg/dL) 130 H 126 H (75-99) mg/dL Calcium 8.2 L (8.4-10.2) mg/dL Total Protein 5.4 L (6.3-8.2) g/dL Albumin 2.9 L (3.5-5.0) g/dL Assessment and Plan (1) Bowel obstruction Narrative/Plan: Keep nothing by mouth with nasogastric tube to suction. Continue ambulation. Agree with plans or transfer to gynecologic oncology for their evaluation. Current Visit: Yes Status: Acute Priority: High Code(s): K56.609 - SNOMED Code(s): 76206910
[2017-03-19 18:05] LABS: Glucose,Whole Blood 119 mg/dL (75-99)
[2017-03-19 20:09] LABS: Glucose,Whole Blood 125 mg/dL (75-99)
[2017-03-19] MEDS: LORazepam 1 MG TAB PO SCH (20:12)
[2017-03-19] MEDS: RUCAPARIB CAMSYLATE PO SCH (20:17)
[2017-03-19] MEDS: ACETAMINOPHEN TAB 325 MG TAB PO PRN (20:21)
[2017-03-20 00:05] LABS: Glucose,Whole Blood 125 mg/dL (75-99)
[2017-03-20] MEDS: PROCHLORPERAZINE 10 MG TAB PO SCH ×4 (02:17→17:59)
[2017-03-20] MEDS: ALPRAZolam 0.5 MG TAB PO PRN (02:46)
[2017-03-20] MEDS: ACETAMINOPHEN TAB 325 MG TAB PO PRN ×3 (02:46→16:46)
--- NOTE | 2017-03-20 06:03 | PN ---
PROGRESS NOTE DATE OF SERVICE: 03/19/17. ATTENDING NOTE: This patient's seen and examined by me. I discussed with nurse practitioner, Ms. Santana. This is a patient with ovarian cancer intraabdominal malignancy presents with small-bowel obstruction. NG tube remains in place. Passed a very small amount of BM not much pain. PHYSICAL EXAMINATION: Temperature 97.8, pulse 118, blood pressure 116/67. Abdomen slightly distended. Minimal tenderness. Bowel sounds are sluggish. Psych AO x3. INVESTIGATIONS: Potassium 3. Accu-Cheks are noted. ASSESSMENT: 1. Acute small-bowel obstruction in a patient with intraabdominal metastatic disease from ovarian cancer, not improving. NG tube remains in place. 2. Moderate protein calorie malnutrition from decreased oral intake. IV TPN in place. PLAN: Care was discussed with the patient and at the bedside. Prognosis does not look good. If there is no improvement, it would be fair to transfer the patient to [facility]. Will follow with Dr. Hicks and Dr. Thao. KYLAH / CARMENN: [id number] /
[2017-03-20 06:11] LABS: Glucose,Whole Blood 115 mg/dL (75-99)
[2017-03-20 06:40] LABS: Anion Gap 10 mmol/L; Blood Urea Nitrogen 6 mg/dL (7-17); Calcium 8.8 mg/dL (8.4-10.2); Carbon Dioxide 30 mmol/L (22-30); Chloride 97 mmol/L (98-107); Glucose 79 mg/dL (74-99); Magnesium 1.7 mg/dL (1.6-2.3); Non-African American GFR(MDRD) >60 (>60 ml/min/1.73 sqM); Phosphorus 4.2 mg/dL (2.5-4.5); Potassium 3.3 mmol/L (3.5-5.1); Sodium 137 mmol/L (137-145)
[2017-03-20] MEDS: FAMOTIDINE 20 MG/2 ML VIAL IV SCH ×2 (08:59→19:58)
[2017-03-20] MEDS: DEXTROSE 5% IN WATER 1,000 ML IV SCH ×2 (08:59→16:16)
[2017-03-20] MEDS: ENOXAPARIN 40 MG/0.4 ML SYRINGE SQ SCH (08:59)
[2017-03-20] MEDS: RUCAPARIB CAMSYLATE 300 MG PO SCH ×4 (09:00→19:39)
[2017-03-20] MEDS: MVI, ADULT NO.4 WITH VIT K 10 ML, TRACE (CONC-1ML/DOSE) 1 ML in AMINO ACID 5%-D25W+LYTE... IV SCH ×3 (10:55)
[2017-03-20] MEDS: POTASSIUM CHLORIDE 10 MEQ in WATER FOR INJECTION 1 100ML.BAG IVPB SCH ×2 (10:58→12:12)
[2017-03-20 11:58] LABS: Glucose,Whole Blood 107 mg/dL (75-99)
--- NOTE | 2017-03-20 14:43 | P.PN ---
Subjective Progress Note Date: 03/20/17 Principal diagnosis: small bowel obstruction Patient feels about the same today. Plans are currently underway for her to be transferred to [facility] for gynecologic oncology evaluation. Pain is well-controlled and nausea is minimal at this time. Objective - Vital Signs Vital signs: Vital Signs Temp 98.8 F 03/20/17 07:00 Pulse 97 03/20/17 07:00 Resp 16 03/20/17 07:00 BP 109/60 03/20/17 07:00 Pulse Ox 99 03/20/17 07:00 Intake & Output 03/19/17 03/20/17 03/20/17 18:59 06:59 18:59 Intake Total 1408 932.25 Output Total 400 300 Balance -400 1108 932.25 Weight 55 kg 54.5 kg Intake: IV 800 Dextrose 5% in Water 1, 800 000 ml @ 100 mls/hr IV . Q10H JOHN Rx#:[id number] Intake, IV Titration 608 932.25 Amount Fat Emulsion 20% 250 ml 168 In Empty Bag 1 bag @ 21 mls/hr IV MoWeFr JOHN Rx#: [id number] Mvi, Adult No.4 with Vit 440 932.25 K 10 ml Trace (Conc-1Ml/ Dose) 1 ml In Amino Acid 5%-D25w+Lytes*E* 1,000 ml @ 55 mls/hr IV .[id number] JOHN Rx#:[id number] Output: Gastric Drainage 300 Stool 100 100 Emesis 200 Other: Voiding Method Toilet Toilet Toilet # Voids 1 2 - Exam Abdomen: Soft, mild distention, mild diffuse tenderness - Labs CBC & Chem 7: 03/17/17 07:20 03/20/17 05:45 Labs: Abnormal Lab Results - Last 24 Hours (Table) 03/19/17 03/19/17 03/20/17 Range/Units 17:51 20:08 00:04 Potassium (3.5-5.1) mmol/L Chloride (98-107) mmol/L BUN (7-17) mg/dL POC Glucose (mg/dL) 119 H 125 H 125 H (75-99) mg/dL 03/20/17 03/20/17 03/20/17 Range/Units 05:45 06:09 11:55 Potassium 3.3 L (3.5-5.1) mmol/L Chloride 97 L (98-107) mmol/L BUN 6 L (7-17) mg/dL POC Glucose (mg/dL) 115 H 107 H (75-99) mg/dL Assessment and Plan (1) Bowel obstruction Narrative/Plan: Agree with plans for tertiary care evaluation. We'll sign off at this point. Current Visit: Yes Status: Acute Priority: High Code(s): K56.609 - SNOMED Code(s): 28344603
[2017-03-20] MEDS: MAGNESIUM SULFATE-D5W PMX 1 GM in DEXTROSE/WATER 1 100ML.BAG IVPB SCH ×2 (16:16→17:08)
--- NOTE | 2017-03-20 17:04 | P.PN ---
Subjective Progress Note Date: 03/20/17 Principal diagnosis: SBO Pt seen in follow up, NG tube in place, she continues to sip water and chew ice , no vomiting, abd distension is persistent, no improvement, she states that now she is now longer have tarry discharge form the rectum, pain is controlled. Objective - Vital Signs Vital signs: Vital Signs Temp 98.5 F 03/20/17 14:48 Pulse 110 H 03/20/17 14:48 Resp 18 03/20/17 14:48 BP 109/66 03/20/17 14:48 Pulse Ox 99 03/20/17 14:48 Intake & Output 03/19/17 03/20/17 03/20/17 18:59 06:59 18:59 Intake Total 1408 932.25 Output Total 400 300 250 Balance -400 1108 682.25 Weight 55 kg 54.5 kg Intake: IV 800 Dextrose 5% in Water 1, 800 000 ml @ 100 mls/hr IV . Q10H JOHN Rx#:[id number] Intake, IV Titration 608 932.25 Amount Fat Emulsion 20% 250 ml 168 In Empty Bag 1 bag @ 21 mls/hr IV MoWeFr JOHN Rx#: [id number] Mvi, Adult No.4 with Vit 440 932.25 K 10 ml Trace (Conc-1Ml/ Dose) 1 ml In Amino Acid 5%-D25w+Lytes*E* 1,000 ml @ 55 mls/hr IV .[id number] JOHN Rx#:[id number] Output: Gastric Drainage 300 250 Stool 100 100 Emesis 200 Other: Voiding Method Toilet Toilet Toilet # Voids 1 2 - Constitutional General appearance: Present: average body habitus, cooperative, no acute distress - Respiratory Respiratory: bilateral: CTA - Cardiovascular Rhythm: regular Heart sounds: normal: S1, S2 - Peripheral edema leg Peripheral Edema: bilateral: None - Gastrointestinal Gastrointestinal Comment(s): no rigidity General gastrointestinal: Present: distended, soft Localized gastrointestinal: tender: diffuse (mild) - Neurologic Neurologic: Present: CNII-XII intact - Musculoskeletal Musculoskeletal: Present: strength equal bilaterally - Psychiatric Psychiatric: Present: A&O x's 3, appropriate affect, intact judgment & insight - Labs CBC & Chem 7: 03/17/17 07:20 10/24/17 05:45 Labs: Abnormal Lab Results - Last 24 Hours (Table) 03/19/17 03/19/17 03/20/17 Range/Units 17:51 20:08 00:04 Potassium (3.5-5.1) mmol/L Chloride (98-107) mmol/L BUN (7-17) mg/dL POC Glucose (mg/dL) 119 H 125 H 125 H (75-99) mg/dL 03/20/17 03/20/17 03/20/17 Range/Units 05:45 06:09 11:55 Potassium 3.3 L (3.5-5.1) mmol/L Chloride 97 L (98-107) mmol/L BUN 6 L (7-17) mg/dL POC Glucose (mg/dL) 115 H 107 H (75-99) mg/dL - Imaging and Cardiology Abdominal x-ray: report reviewed Assessment and Plan (1) Bowel obstruction Narrative/Plan: Persistent SBP despite NPO and NG tube for decompression. Malignancy as the cause of presentation is concerning, felt that best plan is to transfer pt to the care of [facility]. [facility] has accepted pt but awaiting open bed. Transfer as soon as bed available. Case discussed with Case Management Surgeon has followed up with pt. Did briefly discuss case with Surgery. Cont NG , NPO and TPN Current Visit: Yes Status: Acute Priority: High Code(s): K56.609 - SNOMED Code(s): 72694442 (2) Malnutrition Narrative/Plan: TPN being administered until resolution of SBO Current Visit: Yes Status: Acute Priority: High Code(s): E46 - UNSPECIFIED PROTEIN-CALORIE MALNUTRITION SNOMED Code(s): 0707701 (3) Ovarian cancer Narrative/Plan: Rubraca therapy has been held. Further treatment will be discussed once current medical situation has been treated and resolved. Current Visit: Yes Status: Chronic Priority: High Code(s): C56.9 - MALIGNANT NEOPLASM OF UNSPECIFIED OVARY SNOMED Code(s): 219344726 Plan: GI and DVT prophylaxis are ordered
[2017-03-20 18:02] LABS: Glucose,Whole Blood 123 mg/dL (75-99)
--- NOTE | 2017-03-20 19:14 | P.PN ---
Progress Note - Text Progress Note Date: 03/20/17 DATE OF SERVICE: 03/20/2017 PRESENTING COMPLAINT: Abdominal pain HISTORY OF PRESENT ILLNESS: 36-year-old female who presented with poor appetite losing weight and increasing abdominal pain with nausea vomiting body will keep anything down. Has small bowel movement on day of admission. Acute abdominal series revealed distended air-filled small bowel loops consistent with a small bowel obstruction. Admitted for the same. INTERVAL HISTORY: 03/20/2017: Patient seen in follow-up, ambulating in the hallway with her and family , NG tube remains in the left nares to low intermittent suction draining dark brown fluid. Abdominal pain continues although not bad. Patient remains nothing by mouth, continues to pass small amounts of stool. TPN for nutritional support Potassium low this morning supplementation provided. Plan per oncology is to transfer the patient to [facility] in [place] , patient's been accepted however no bed available at this time. Gen. surgery evaluated the patient agrees with plans for tertiary care transfer signed off at this time. 03/19/2017: Patient seen in follow-up, sitting in a chair at the bedside, NG tube in left nares, draining dark brown fluid. Abdominal pain continues, though better but no worse either. Had some questions regarding length of time it takes to resolving ileus, referred questions to Gen. surgery, did inform the patient and in each case individual. Potassium low this morning received supplementation, abdominal x-ray this morning revealed findings stable but consistent with high-grade partial small bowel obstruction. Remains nothing by mouth, NG tube to low intermittent suction, TPN for nutritional support. REVIEW OF SYSTEMS: Done for constitutional ,cardiovascular, GI, pulmonary with relevant findings as above. CURRENT MEDICATIONS IV Tylenol, Xanax, Lovenox, Pepcid, Ativan, morphine, Zofran, Compazine. Benzocaine spray, TPN/fat emulsion, Imitrex 100 mg by mouth daily PHYSICAL EXAM VITAL SIGNS: Temperature 98.6, pulse 88, respirations 18, blood pressure 101/60, oxygen saturation 96% on room air. GENERAL APPEARANCE: Lying in bed, not in distress, tired appearing EYES: Pupils equal. Conjunctiva normal. NECK: JVD not raised. Mass not palpable. RESPIRATORY: Respiratory effort normal. Lungs decreased to auscultation. CARDIOVASCULAR: First and second sounds normal. No edema. ABDOMEN: Soft. Liver and spleen not palpable. Diffuse tenderness. No mass palpable. No guarding or rigidity PSYCHIATRY: Alert and oriented x3. Mood and affect normal. INVESTIGATIONS: Sodium 137, potassium 3.3, chloride 97, carbon dioxide 30, Accu-Cheks noted. ASSESSMENT: -Acute small bowel obstruction a patient who has intra-abdominal metastatic disease from ovarian cancer, not improving, NG tube remains in place s -Metastatic ovarian cancer on chemotherapy. -Chronic left pleural effusion from malignancy with a drain in place. -Hypothyroidism. -Macrocytic anemia likely from underlying malignancy. -Moderate protein calorie malnutrition from decreased oral intake, IV TPN in place. -Hypomagnesemia. -Hypokalemia. PLAN: Maintain nothing by mouth status continue IV fluids, NG tube to low intermittent suction, continue TPN , low potassium replaced per protocol. Oncology transferring patient to [facility] in [place] as soon as bed available. Plan of care discussed at the bedside with the patient and and they are in agreement. We'll follow closely. 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 Martínez
[2017-03-20] MEDS: RUCAPARIB CAMSYLATE PO SCH (19:39)
[2017-03-20] MEDS: LORazepam 1 MG TAB PO SCH (19:58)
--- NOTE | 2017-03-20 21:07 | PN ---
PROGRESS NOTE DATE OF SERVICE: March 20, 2017. ATTENDING NOTE: Patient seen and examined by me. I discussed with my nurse practitioner, Ms. Santana. This is a patient with ovarian cancer with intraabdominal metastatic disease. NG tube in place. Passed a small amount of gas. Not much abdominal pain. Tired. Per Oncology and surgery patient is to go down to [facility]. Process in place. The patient's , son in law is at the bedside. EXAM: Abdomen is soft. Mild tenderness. NG tube in place. Awake, answering questions. LABORATORY DATA: Potassium 3.3. ASSESSMENT: Acute bowel obstruction with intraabdominal metastatic disease and ovarian cancer not improving. Remains on NG tube. PLAN: Patient is slow to respond. Getting TPN. Plan for the patient to go down to [place]. Care was discussed with the patient and family. Prognosis guarded. MMLEIGHTON / GHADA: [id number] /
[2017-03-20 23:17] VITALS: RESP 16
[2017-03-21 00:39] LABS: Glucose,Whole Blood 111 mg/dL (75-99)
[2017-03-21] MEDS: ALPRAZolam 0.5 MG TAB PO PRN ×2 (01:21→16:19)
[2017-03-21] MEDS: ACETAMINOPHEN TAB 325 MG TAB PO PRN ×2 (01:21→10:39)
[2017-03-21] MEDS: PROCHLORPERAZINE 10 MG TAB PO SCH ×3 (01:21→12:14)
[2017-03-21] MEDS: MVI, ADULT NO.4 WITH VIT K 10 ML, TRACE (CONC-1ML/DOSE) 1 ML in AMINO ACID 5%-D25W+LYTE... IV SCH ×3 (04:48)
[2017-03-21 05:59] LABS: Anion Gap 10 mmol/L; Blood Urea Nitrogen 10 mg/dL (7-17); Calcium 8.8 mg/dL (8.4-10.2); Carbon Dioxide 34 mmol/L (22-30); Chloride 94 mmol/L (98-107); Glucose 109 mg/dL (74-99); Non-African American GFR(MDRD) >60 (>60 ml/min/1.73 sqM); Phosphorus 4.7 mg/dL (2.5-4.5); Potassium 3.4 mmol/L (3.5-5.1); Sodium 138 mmol/L (137-145)
[2017-03-21 06:49] LABS: Glucose,Whole Blood 114 mg/dL (75-99)
[2017-03-21] MEDS: ENOXAPARIN 40 MG/0.4 ML SYRINGE SQ SCH (08:29)
[2017-03-21] MEDS: FAMOTIDINE 20 MG/2 ML VIAL IV SCH (08:29)
[2017-03-21] MEDS: DEXTROSE 5% IN WATER 1,000 ML IV SCH (08:29)
[2017-03-21] MEDS: RUCAPARIB CAMSYLATE 300 MG PO SCH ×2 (08:30→12:14)
[2017-03-21] MEDS: POTASSIUM CHLORIDE 10 MEQ, LIDOCAINE 2% INJ 10 MG in SODIUM CHLORIDE 0.9% 100 ML IV SCH ×2 (10:35→12:13)
[2017-03-21 12:02] VITALS: BMI 20.6
[2017-03-21 12:19] LABS: Glucose,Whole Blood 120 mg/dL (75-99)
--- NOTE | 2017-03-21 12:43 | P.PN ---
Subjective Progress Note Date: 03/21/17 Principal diagnosis: small bowel obstruction Patient doing somewhat better. She did have a small loose stool. Denies abdominal pain. Objective - Vital Signs Vital signs: Vital Signs Temp 99 F 03/21/17 07:00 Pulse 111 H 03/21/17 07:00 Resp 16 03/21/17 07:00 BP 100/66 03/21/17 07:00 Pulse Ox 98 03/21/17 07:00 Intake & Output 03/20/17 03/21/17 03/21/17 18:59 06:59 18:59 Intake Total 932.25 983.583 Output Total 250 Balance 682.25 983.583 Weight 54.5 kg 54.5 kg Intake: Intake, IV Titration 932.25 983.583 Amount Mvi, Adult No.4 with Vit 932.25 983.583 K 10 ml Trace (Conc-1Ml/ Dose) 1 ml In Amino Acid 5%-D25w+Lytes*E* 1,000 ml @ 55 mls/hr IV .[id number] [facility] Rx#:[id number] Output: Gastric Drainage 250 Other: Voiding Method Toilet Toilet - Exam abdomen: Soft, mild tenderness, mild distention - Labs CBC & Chem 7: 03/17/17 07:20 03/21/17 05:20 Labs: Abnormal Lab Results - Last 24 Hours (Table) 03/20/17 03/21/17 03/21/17 Range/Units 17:58 00:38 05:20 Potassium 3.4 L (3.5-5.1) mmol/L Chloride 94 L (98-107) mmol/L Carbon Dioxide 34 H (22-30) mmol/L Glucose 109 H (74-99) mg/dL POC Glucose (mg/dL) 123 H 111 H (75-99) mg/dL Phosphorus 4.7 H (2.5-4.5) mg/dL 03/21/17 03/21/17 Range/Units 06:47 12:18 Potassium (3.5-5.1) mmol/L Chloride (98-107) mmol/L Carbon Dioxide (22-30) mmol/L Glucose (74-99) mg/dL POC Glucose (mg/dL) 114 H 120 H (75-99) mg/dL Phosphorus (2.5-4.5) mg/dL Assessment and Plan (1) Bowel obstruction Narrative/Plan: continue bowel rest with nasogastric tube to suction. Pending transfer to [facility]. Current Visit: Yes Status: Acute Priority: High Code(s): K56.609 - SNOMED Code(s): 15044174
--- NOTE | 2017-03-21 13:05 | P.PN ---
Subjective Progress Note Date: 03/21/17 Principal diagnosis: SBO Pt seen today in follow up, she is currently awaiting transfer to [facility]. Sips of water and ice, her throat and abd are sore today, she did pass a small amt of pale brown stool this AM, she can hear her bowel sounds, she does not feel well overall today. Objective - Vital Signs Vital signs: Vital Signs Temp 99 F 03/21/17 07:00 Pulse 111 H 03/21/17 07:00 Resp 16 03/21/17 07:00 BP 100/66 03/21/17 07:00 Pulse Ox 98 03/21/17 07:00 Intake & Output 03/20/17 03/21/17 03/21/17 18:59 06:59 18:59 Intake Total 932.25 983.583 Output Total 250 Balance 682.25 983.583 Weight 54.5 kg 54.5 kg Intake: Intake, IV Titration 932.25 983.583 Amount Mvi, Adult No.4 with Vit 932.25 983.583 K 10 ml Trace (Conc-1Ml/ Dose) 1 ml In Amino Acid 5%-D25w+Lytes*E* 1,000 ml @ 55 mls/hr IV .[id number] JOHN Rx#:[id number] Output: Gastric Drainage 250 Other: Voiding Method Toilet Toilet - Constitutional General appearance: Present: average body habitus, cooperative, mild distress - EENT Eyes: Present: anicteric sclerae, normal appearance - Respiratory Respiratory: right: diminished (base), bilateral: CTA - Cardiovascular Details: tachycardia Rhythm: regular Heart sounds: normal: S1, S2 - Peripheral edema leg Peripheral Edema: bilateral: None - Gastrointestinal Gastrointestinal Comment(s): bowel sounds notably louder and more frequent today General gastrointestinal: Present: distended, soft, tenderness Localized gastrointestinal: tender: diffuse - Integumentary Integumentary: Present: pale - Neurologic Neurologic: Present: CNII-XII intact - Musculoskeletal Musculoskeletal: Present: strength equal bilaterally - Psychiatric Psychiatric: Present: A&O x's 3, appropriate affect, intact judgment & insight - Labs CBC & Chem 7: 03/17/17 07:20 03/21/17 05:20 Labs: Abnormal Lab Results - Last 24 Hours (Table) 03/20/17 03/21/17 03/21/17 Range/Units 17:58 00:38 05:20 Potassium 3.4 L (3.5-5.1) mmol/L Chloride 94 L (98-107) mmol/L Carbon Dioxide 34 H (22-30) mmol/L Glucose 109 H (74-99) mg/dL POC Glucose (mg/dL) 123 H 111 H (75-99) mg/dL Phosphorus 4.7 H (2.5-4.5) mg/dL 03/21/17 03/21/17 Range/Units 06:47 12:18 Potassium (3.5-5.1) mmol/L Chloride (98-107) mmol/L Carbon Dioxide (22-30) mmol/L Glucose (74-99) mg/dL POC Glucose (mg/dL) 114 H 120 H (75-99) mg/dL Phosphorus (2.5-4.5) mg/dL Assessment and Plan (1) Bowel obstruction Narrative/Plan: awaiting transfer as soon as bed available. Case discussed with Case Management Cont NG, NPO and TPN Current Visit: Yes Status: Acute Priority: High Code(s): K56.609 - SNOMED Code(s): 03983719 (2) Malnutrition Narrative/Plan: TPN being administered until resolution of SBO Current Visit: Yes Status: Acute Priority: High Code(s): E46 - UNSPECIFIED PROTEIN-CALORIE MALNUTRITION SNOMED Code(s): 1003869 (3) Ovarian cancer Narrative/Plan: Rubraca therapy has been held. Further treatment to be discussed after resolution of current medical problems Current Visit: Yes Status: Chronic Priority: High Code(s): C56.9 - MALIGNANT NEOPLASM OF UNSPECIFIED OVARY SNOMED Code(s): 590229354
[2017-03-21 15:36] VITALS: BP 102/72; PULSE 115; TEMP 99.6
[2017-03-21] MEDS: FAT EMULSION 20% 250 ML in EMPTY BAG 1 BAG IV SCH (16:19)
--- NOTE | 2017-03-21 16:41 | DS ---
DISCHARGE SUMMARY DATE OF ADMISSION: March 15, 2017. DATE OF TRANSFER: March 21, 2017 FINAL DIAGNOSES: 1. Acute small-bowel obstruction in a patient who has an intraabdominal metastatic disease from ovarian cancer. 2. Metastatic ovarian cancer on chemotherapy. 3. Chronic left pleural effusion from malignancy with a chest drain in place clamped off. 4. Hypothyroidism. 5. Microcytic anemia likely from underlying malignancy. 6. Hypokalemia. HOSPITAL COURSE: This is a pleasant 46-year-old patient, in 2014 showed diagnosis of ovarian cancer with peritoneal involvement. She had 4 cycles of carboplatin and Taxol and underwent debulking surgery in October of [address] Red. She had additional 2 cycles of carboplatin and Taxol, completing treatment in late December 2014. She progressed and August 2015 the rising CA-125 as well as left pleural effusion. Thoracentesis was positive for adenocarcinoma consistent with ovarian primary. The patient is started on Doxil with carboplatin added after about 2-3 months due to aggressive increasing CA- 125. She then completed and Doxil in March 2016. By July of 2016 she had progressed and given the recurrent pleural effusions requiring periodic paracentesis. She was started on . She was BRCA1 positive. The last couple of months she has continued to feel somewhat poorly. As per Dr. Red evaluation in December of 2016 she was concerned for progression of the adnexal region. The patient on this admission presented with a bowel obstruction. NG tube was placed. Still continues to have bowel obstruction, having some nausea, vomiting, having very small amounts smears of stool. She was seen by Dr. Thao the oncologist here in the hospital and Dr. Hicks from general surgery. Because of lack of progression improvement she is being transferred to [facility] for further treatment. The patient also started on TPN. PHYSICAL EXAMINATION: On exam temperature 99.6, pulse 115, respirations 16, blood pressure 102/72, pulse ox 96% on room air. GENERAL APPEARANCE Thin build, lying in bed. HEENT: NG tube in place. NECK: JVD not raised. RESPIRATORY: Effort, lungs fair entry. CARDIOVASCULAR: First and second sounds normal. ABDOMEN: Slightly distended, soft. Minimal tenderness. INVESTIGATIONS: Potassium 3.4, BUN 10, creatinine 0.61, albumin 2.9. CONSULTATIONS: 1. Dr. Hicks from from General surgery. 2. Dr. Thao from Oncology. Care was discussed with the patient and . They understand the guarded prognosis. Discharge time and discussion more than 35 minutes. MMLEIGHTON / CARMENN: [id number] /
[2017-03-21] MEDS ORDERED: MVI, ADULT NO.4 WITH VIT K 10 ML, TRACE (CONC-1ML/DOSE) 1 ML, POTASSIUM CHLORIDE 20 MEQ... IV SCH ×4 (23:00)
--- NOTE | 2017-04-04 22:29 | PN ---
PROGRESS NOTE CORRECTION: My progress note dictated on 03/16/2017 at 20:52, date transcribed on 03/16/2017 at 22:36, the correct date of service is 03/16/2017. MMODL / IJN: [id number] /
== END 2017-03-21 17:30 | disposition other institution (70) | DRG 375 ==
LOC: EC 04:20 → 4MS4W 06:52 → 5ONC 03-18 13:20
PROVIDERS: ADMIT Hospitalist; ATTEND Hospitalist
PROC: 3E0336Z Introduction of Nutritional Substance into Peripheral Vein, Percutaneous Approach (ICD-10-PCS; principal; 2017-03-18)
DX: C78.6 Secondary malignant neoplasm of retroperitoneum and peritoneum (principal); C78.7 Secondary malignant neoplasm of liver and intrahepatic bile duct; J91.0 Malignant pleural effusion; E44.0 Moderate protein-calorie malnutrition; E83.42 Hypomagnesemia; C56.9 Malignant neoplasm of unspecified ovary; D53.9 Nutritional anemia, unspecified; F32.9 Major depressive disorder, single episode, unspecified; E03.9 Hypothyroidism, unspecified; F41.9 Anxiety disorder, unspecified; E87.6 Hypokalemia; R11.0 Nausea; D63.0 Anemia in neoplastic disease; Z79.899 Other long term (current) drug therapy; Z80.1 Family history of malignant neoplasm of trachea, bronchus and lung; Z90.710 Acquired absence of both cervix and uterus; Z87.891 Personal history of nicotine dependence; Z90.49 Acquired absence of other specified parts of digestive tract; Z83.3 Family history of diabetes mellitus; Z90.11 Acquired absence of right breast and nipple; Z85.3 Personal history of malignant neoplasm of breast; Z92.3 Personal history of irradiation
CPT/HCPCS: 36415; 71010; 74020; 74022; 74177; 80048; 80053; 81001; 82150; 82330; 83690; 83735; 84100; 84132; 84134; 84478; 85025; 96361; 96374; 96376; 99284